=== PATIENT | female | born 2005 | race Caucasian/White ===

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

== ENCOUNTER 2024-03-19 14:34 | Emergency (ER) | payer OTHER, MEDICAID, SELFPAY ==
[2024-03-19 14:40] VITALS: BP 133/70; PULSE 104; RESP 21; TEMP 36.8; O2SAT 96; BMI 31.3
--- NOTE | 2024-03-19 14:58 | EXP.UTC ---
Discharge Plan Disposition Patient Disposition: Home, Self-Care Condition: Good Prescriptions Prescriptions: New nystatin 100,000 unit/mL suspension 4 ml buccal QID 10 Days Qty: 160 0RF Rx Instructions: administer 1/2 of dose in each side of the mouth swish and spit No Action escitalopram oxalate 10 mg tablet 10 mg PO DAILY Referrals Follow up/Referrals: Kaity Carlson PA [Primary Care Provider] - See instructions Activity Restrictions/Add. Instructions Additional Instructions/Restrictions: Swish and spit medication as prescribed Clean all straws or anything that you have placed in your mouth FOllow up with your Family Doctor if no improvement or any worsening of symptoms Clinical Impressions Clinical Impression: Thrush Instructions Patient Instructions: DI for Thrush, Thrush-Adult, Nystatin Discharge ED Provider: Rocío Fuentes [facility] General Stated complaint: Thrush Mode of Arrival: Ambulatory Source of Information: Patient Limitations: No Limitations Time Seen by Provider: 03/19/24 14:59 Description of Symptoms (Recalled from Triage Doc. by RN): PATIENT C/O ORAL THURSH SINCE YESTERDAY HEENT Symptoms (Recalled from RN notes): Yes Resp Symptoms (Recalled from RN notes): No Skin Symptoms (Recalled from RN notes): No MS Symptoms (Recalled from RN notes): No Functional Status (Recalled from RN notes): WNL History of Present Illness Provider Complaint: Patient states that she noticed her tongue had white patchy like areas on it yesterday and felt raw states today it looked more patchy and thinks she may have thrush Related Data Home Medications Medication Instructions Recorded Confirmed escitalopram oxalate 10 mg tablet 10 mg PO DAILY 03/19/24 03/19/24 Previous Rx's Medication Instructions Recorded nystatin 100,000 unit/mL oral 4 ml buccal QID 10 days #160 mL 03/19/24 suspension Allergies Allergy/AdvReac Type Severity Reaction Status Date / Time No Known Allergies Allergy Verified 03/01/24 13:46 Worker's Comp Is this a Worker's Comp case?: No [facility] Disclaimer: The information contained in this section may have been updated after the patient was seen, as this information can be updated by other users. Medical History (Updated 03/19/24 @ 15:03 by Rocío Fuentes APRN) Depression Anxiety Surgical History H/O wisdom tooth extraction Family History Other Substance abuse Social History Smoking Status: Never smoker second hand exposure: No alcohol intake: never substance use type: denies use current occupational status: other Travel in the last 8 weeks: None housing: house number of children: 0 ROS Obtained: Yes All systems reviewed & no additional complaints except as documented and Yes Systems reviewed as appropriate & no additional complaints except as documented Constitutional Constitutional: Reports system reviewed and no additional complaints, except as documented and Reports as per HPI ENT Ears, Nose, Mouth, and Throat: Reports system reviewed and no additional complaints, except as documented, Reports as per HPI and Reports other (white patchy area on tongue thinks it is thrush) Cardiovascular Cardiovascular: Reports system reviewed and no additional complaints, except as documented and Reports as per HPI Respiratory Respiratory: Reports system reviewed and no additional complaints, except as documented and Reports as per HPI Physical Exam General General appearance: alert and in no apparent distress ENT ENT exam: Present mucous membranes moist Expanded ENT Exam Mouth exam: Present other (white patchy like areas on tongue that does not scrap off with tongue blade) Respiratory Respiratory exam: Present normal lung sounds bilaterally; Absent respiratory distress or wheezes Cardiovascular Cardiovascular exam: Present regular rate, normal rhythm and normal heart sounds Neurological Exam Neurological exam: Present alert, oriented X3 and normal gait Medical Decision Making Regis Inquiry Pt receiving controlled substance: No Regis was queried for this patient: No Vital Signs: 03/19/24 14:40 Temperature 98.2 F Temperature Source Oral Pulse Rate [Left Brachial] 104 H Respiratory Rate 21 Blood Pressure [Left Arm] 133/70 Blood Pressure Mean [Left Arm] 91 Blood Pressure Source [Left Arm] Automatic Cuff Blood Pressure Position [Left Arm] Sitting 02 Sat by Pulse Oximetry 96 Oxygen Delivery Method Room Air
[2024-03-19 15:06] VITALS: BP 133/70; PULSE 104; RESP 21; TEMP 36.8; O2SAT 96
== END 2024-03-19 15:10 | disposition home or self-care (01) ==
PROVIDERS: Emergency Provider Nurse Practitioner; PCP Physician Assistant
DX: B37.0 Candidal stomatitis (principal)
CPT/HCPCS: 99212; 99214; G0463

== ENCOUNTER 2024-04-04 19:21 | Emergency (ER) | payer OTHER, MEDICAID, SELFPAY ==
[2024-04-04 19:34] VITALS: BP 136/72; PULSE 107; RESP 18; TEMP 37; O2SAT 95; BMI 31.8
[2024-04-04 19:40] LABS: UTC Strep Screen (Rapid) Negative (Negative)
--- NOTE | 2024-04-04 19:40 | ED_ITS ---
Discharge Plan Disposition Patient Disposition: Home, Self-Care Condition: Good Prescriptions Prescriptions: New amoxicillin 875 mg tablet 875 mg PO Q12H Qty: 20 0RF methylprednisolone 4 mg Tablets,Dose Pack 4 mg PO DIRECTED 6 Days Qty: 21 0RF Rx Instructions: Take 1 pack as directed for 6 days No Action escitalopram oxalate 10 mg tablet 10 mg PO DAILY nystatin 100,000 unit/mL suspension 4 ml buccal QID 10 Days Qty: 160 0RF Rx Instructions: administer 1/2 of dose in each side of the mouth swish and spit Referrals Follow up/Referrals: Kaity Carlson PA [Primary Care Provider] - See instructions Activity Restrictions/Add. Instructions Additional Instructions/Restrictions: Drink plenty of fluids. Take tylenol or ibuprofen for pain or fever. Take the medications as directed. Follow up with your regular doctor. GO TO THE ER FOR ANY WORSENING SYMPTOMS Clinical Impressions Clinical Impression: Sinusitis, Otitis media Instructions Patient Instructions: Sinusitis, DI for Sinusitis Discharge ED Provider: Gustavo Mathew [facility] General Stated complaint: Sore throat,cough,earache,teeth hurt Mode of Arrival: Ambulatory Source of Information: Patient Limitations: No Limitations Time Seen by Provider: 04/04/24 19:35 Description of Symptoms (Recalled from Triage Doc. by RN): Patient reports a possible sinus infection. States her symptoms started on April 03. HEENT Symptoms (Recalled from RN notes): Yes Resp Symptoms (Recalled from RN notes): No Skin Symptoms (Recalled from RN notes): No MS Symptoms (Recalled from RN notes): No Functional Status (Recalled from RN notes): wnl Related Data Home Medications Medication Instructions Recorded Confirmed escitalopram oxalate 10 mg tablet 10 mg PO DAILY 03/19/24 03/23/24 Previous Rx's Medication Instructions Recorded nystatin 100,000 unit/mL oral 4 ml buccal QID 10 days #160 mL 03/19/24 suspension amoxicillin 875 mg tablet 875 mg PO Q12H #20 tabs 04/04/24 methylprednisolone 4 mg tablets in 4 mg PO DIRECTED 6 days #21 tabs 04/04/24 a dose pack Allergies Allergy/AdvReac Type Severity Reaction Status Date / Time No Known Allergies Allergy Verified 03/23/24 08:50 Worker's Comp Is this a Worker's Comp case?: No [facility] Disclaimer: The information contained in this section may have been updated after the patient was seen, as this information can be updated by other users. Medical History (Updated 04/04/24 @ 20:03 by Gustaov Mathew APRN) Depression Anxiety Surgical History H/O wisdom tooth extraction Family History Other Substance abuse Social History Smoking Status: Never smoker second hand exposure: No alcohol intake: never substance use type: denies use current occupational status: other Travel in the last 8 weeks: None housing: house number of children: 0 ROS Obtained: Yes All systems reviewed & no additional complaints except as documented Constitutional Constitutional: Reports chills and Reports fever(s) Eyes Eyes: Denies eye discharge ENT Ears, Nose, Mouth, and Throat: Reports as per HPI Cardiovascular Cardiovascular: Denies chest pain Respiratory Respiratory: Denies chest congestion and Reports cough Gastrointestinal Gastrointestingal: Reports nausea; Denies abdominal pain, constipation, cramping, diarrhea or vomiting Musculoskeletal Musculoskeletal: Denies arthralgias Integumentary/Breasts Skin/Breast: Denies rash Neurologic Neurologic: Denies paresthesias Physical Exam General General appearance: alert and in no apparent distress Head Head exam: atraumatic, normocephalic and normal inspection Eye Eye exam: Present normal appearance, PERRL and EOMI ENT ENT exam: Present mucous membranes moist and normal external ear exam Expanded ENT Exam TM/Canal exam: Bilateral TM: erythema and bulging Nose exam: Absent sinus tenderness Mouth exam: Present normal external inspection; Absent drooling Teeth exam: Present normal inspection Throat exam: Present tonsillar erythema, tonsillomegaly and tonsillar exudate Neck Neck exam: Present normal inspection, full ROM and trachea midline; Absent tenderness, meningismus or lymphadenopathy Chest Chest inspection: Present normal inspection and symmetric chest wall rise; Abs ent tenderness Respiratory Respiratory exam: Present normal lung sounds bilaterally; Absent respiratory distress, wheezes or stridor Cardiovascular Cardiovascular exam: Present regular rate and normal rhythm; Absent systolic murmur or diastolic murmur Abdominal Exam Abdominal exam: Present soft and normal bowel sounds; Absent distention, tenderness, guarding, rebound or rigidity Extremities Exam Extremities exam: Present normal inspection and normal capillary refill; Absent calf tenderness Back Exam Back exam: Present normal inspection and full ROM; Absent tenderness, CVA tenderness (R) or CVA tenderness (L) Neurological Exam Neurological exam: Present alert, oriented X3 and CN II-XII intact Psychiatric Psychiatric exam: Present normal affect and normal mood Skin Skin exam: Present warm, dry, intact and normal color Medical Decision Making Medical Records Medical records reviewed: No I reviewed the patient's medical records. Regis Inquiry Pt receiving controlled substance: No Vital Signs: 04/04/24 19:34 Temperature 98.6 F Temperature Source Oral Pulse Rate [Radial] 107 H Respiratory Rate 18 Blood Pressure [Right Arm] 136/72 Blood Pressure Mean [Right Arm] 93 Blood Pressure Source [Right Arm] Automatic Cuff Blood Pressure Position [Right Arm] Sitting 02 Sat by Pulse Oximetry 95 Oxygen Delivery Method Room Air Lab Data Lab results reviewed: Yes I reviewed the patient's lab results.
[2024-04-04 20:03] VITALS: BP 136/72; PULSE 107; RESP 18; TEMP 37; O2SAT 95
== END 2024-04-04 20:06 | disposition home or self-care (01) ==
PROVIDERS: Emergency Provider Nurse Practitioner Family; PCP Physician Assistant
DX: H66.93 Otitis media, unspecified, bilateral (principal); J01.90 Acute sinusitis, unspecified; R05.9 Cough, unspecified; R07.0 Pain in throat
CPT/HCPCS: 87880; 99212; 99214; G0463

== ENCOUNTER 2024-05-09 12:26 | Outpatient (CLI) | payer OTHER, MEDICAID, SELFPAY ==
[2024-05-09 13:30] LABS: HCG,Quantitative < 2 mIU/ml (0-5.42)
== END 2024-05-09 23:59 | disposition home or self-care (01) ==
LOC: LAB 12:26
PROVIDERS: PCP Physician Assistant; Visit Provider Obstetrics & Gynecology
DX: Z30.9 Encounter for contraceptive management, unspecified (principal)
CPT/HCPCS: 36415; 84702

== ENCOUNTER 2024-05-29 18:13 | Emergency (ER) | payer OTHER, MEDICAID, SELFPAY ==
[2024-05-29 19:00] VITALS: BP 116/58; PULSE 134; RESP 22; TEMP 38.5; O2SAT 97; BMI 32.8
[2024-05-29 19:12] LABS: UTC Strep Screen (Rapid) Positive (Negative)
[2024-05-29] MEDS: IBUPROFEN 400 MG TABLET 800 MG PO (19:19)
--- NOTE | 2024-05-29 19:27 | ED_ITS ---
Discharge Plan Disposition Patient Disposition: Home, Self-Care Condition: Good Prescriptions Prescriptions: New amoxicillin 875 mg tablet 875 mg PO BID 10 Days Qty: 20 0RF No Action escitalopram oxalate 10 mg tablet 20 mg PO DAILY Referrals Follow up/Referrals: Kaity Carlson PA [Primary Care Provider] - See instructions Activity Restrictions/Add. Instructions Additional Instructions/Restrictions: *Monitor Temp, Over the counter Motrin or Tylenol as directed/as needed Tylenol every 4 hours and Motrin every 6 hours (as long as your family doctor has told you that you can take it) for fever or pain. and straight to ER if unable to lower temp less than 101.0 after medication given *Warm salt water gargles may help to soothe the throat *Throat Lozenges? *Warm fluids like tea with honey may help to soothe the throat? *Sleep elevated *Humidifier/Vaporizer * *If you did not take Penicillin shot or was unable to, start taking antibiotic immediately and make sure that you take it for the FULL length of time although you should start to feel better in 24-48 hours *change toothbrush and toothpaste 24-48 hours after starting to take antibiotics so you do not reinfect yourself Monitor Temp. Tylenol and/or Ibuprofen as needed. ER if fever is no less than 101 despite alternating Tylenol and Ibuprofen * Encourage fluids, water, Gatorade, powerade, pedialyte if /toddler/or child *Cold fluids, popsicles and ice cream may feel good on his throat Follow up IMMEDIATELY for new or worsening symptoms or no Noticeable improvement over the next 48-72 hours. 911 for difficulty breathing or swallowing You were tested for today for COVID19 your test result should be back in the next few ?hours, you may check your results on the [facility] [address] [facility] [employer] [facility] Clinical Impressions Clinical Impression: Strep throat Instructions Patient Instructions: Strep Throat, DI for Strep Throat, Amoxicillin Print Language Print Language: Estonian Discharge ED Provider: Rocío Fuentes [facility] [place] General Stated complaint: Sore throat,Body aches,YOON Mode of Arrival: Ambulatory Source of Information: Patient Limitations: No Limitations Time Seen by Provider: 05/29/24 19:27 Description of Symptoms (Recalled from Triage Doc. by RN): PATIENT C/O SORE THROAT, HEADACHE, FEVER AND BODY ACHES THAT STARTED THIS MORNING HEENT Symptoms (Recalled from RN notes): Yes Resp Symptoms (Recalled from RN notes): No Skin Symptoms (Recalled from RN notes): No MS Symptoms (Recalled from RN notes): No Functional Status (Recalled from RN notes): WNL History of Present Illness Provider Complaint: Patient states that she woke up this morning with her throat hurting, feeling achy all over, headache, fever and chills states that she continued to feel bad throughout they day and this evening she was still not feeling well and having fever so she came in to get checked for strep and COVID Related Data Home Medications ?Medication ?Instructions ?Recorded ?Confirmed escitalopram oxalate 10 mg tablet 20 mg PO DAILY 03/19/24 05/29/24 Previous Rx's ?Medication ?Instructions ?Recorded amoxicillin 875 mg tablet 875 mg PO BID 10 days #20 tabs 05/29/24 Allergies Allergy/AdvReac Type Severity Reaction Status Date / Time No Known Allergies Allergy Verified 04/10/24 15:37 Worker's Comp Is this a Worker's Comp case?: No [facility] Disclaimer: The information contained in this section may have been updated after the patient was seen, as this information can be updated by other users. Medical History Depression Anxiety Surgical History H/O wisdom tooth extraction Family History Other Substance abuse Social History Smoking Status: Never smoker second hand exposure: No alcohol intake: never substance use type: denies use current occupational status: other Travel in the last 8 weeks: None housing: house number of children: 0 ROS Obtained: Yes All systems reviewed & no additional complaints except as documented and Yes Systems reviewed as appropriate & no additional complaints except as documented Constitutional Constitutional: Reports system reviewed and no additional complaints, except as documented, Reports as per HPI, Reports body ache, Reports chills, Reports fever(s) and Reports headache(s) ENT Ears, Nose, Mouth, and Throat: Reports system reviewed and no additional complaints, except as documented, Reports as per HPI, Reports headache(s) and Reports sore throat Cardiovascular Cardiovascular: Reports system reviewed and no additional complaints, except as documented and Reports as per HPI Respiratory Respiratory: Reports system reviewed and no additional complaints, except as documented and Reports as per HPI Gastrointestinal Gastrointestingal: Reports system reviewed and no additional complaints, except as documented and as per HPI Neurologic Neurologic: Reports headache(s) Physical Exam General General appearance: alert and in no apparent distress ENT ENT exam: Present mucous membranes moist Expanded ENT Exam Nose exam: Absent sinus tenderness Throat exam: Present tonsillar erythema Respiratory Respiratory exam: Present normal lung sounds bilaterally; Absent respiratory distress or wheezes Cardiovascular Cardiovascular exam: Present regular rate, normal rhythm and normal heart sounds Abdominal Exam Abdominal exam: Present soft and normal bowel sounds; Absent distention or tenderness Neurological Exam Neurological exam: Present alert, oriented X3 and normal gait Medical Decision Making Regis Inquiry Pt receiving controlled substance: No Regis was queried for this patient: No Vital Signs: 05/29/24 19:00 Temperature 101.3 F H Temperature Source Oral Pulse Rate [Left Brachial] 134 H Respiratory Rate 22 Blood Pressure [Left Arm] 116/58 L Blood Pressure Mean [Left Arm] 77 Blood Pressure Source [Left Arm] Automatic Cuff Blood Pressure Position [Left Arm] Sitting 02 Sat by Pulse Oximetry 97 Oxygen Delivery Method Room Air Lab Data Lab results reviewed: Yes I reviewed the patient's lab results. Lab Results 05/29/24 19:02: Strep Scn Rapid Clinic Positive A Orders (Tests/Meds): ED MEDICATIONS Generic Name Dose Route Start Last Admin Trade Name Tray PRN Reason Stop Dose Admin Ibuprofen 800 mg 05/29/24 19:13 05/29/24 19:19 Ibuprofen 400 Mg Tablet PO 05/29/24 19:14 800 mg ONCE ONE Administration
[2024-05-29 19:53] VITALS: BP 116/58; PULSE 134; RESP 22; TEMP 38.4; O2SAT 97
[2024-05-29] MEDS: AMOXICILLIN 500MG CAPSULE 500 MG PO (19:57)
[2024-05-29 20:04] LABS: Coronavirus 19, PCR Not Detected (NotDetected); Influenza A, PCR Not Detected (NotDetected); Influenza B, PCR Not Detected (NotDetected)
== END 2024-05-29 20:03 | disposition home or self-care (01) ==
PROVIDERS: Emergency Provider Nurse Practitioner; PCP Physician Assistant
DX: J02.0 Streptococcal pharyngitis (principal); R51.9 Headache, unspecified; R50.9 Fever, unspecified
CPT/HCPCS: 87636; 87880; 99212; 99214; G0463

== ENCOUNTER 2024-07-23 12:19 | Emergency (ER) | payer OTHER, SELFPAY ==
[2024-07-23] VITALS (9 sets, daily range): BP systolic 102–136; BP diastolic 51–78; PULSE 71–112; RESP 16–19; TEMP 37.1–37.3; O2SAT 98–100; BMI 32.3
--- NOTE | 2024-07-23 12:40 | US_ITS ---
PROCEDURE INFORMATION: Exam: US Duplex Artery and Vein of the Abdominal and/or Reproductive Organs. Complete Ovaries Exam date and time: 07/23/2024 12:46 PM Age: 19 years old Clinical indication: Pelvic pain; Additional info: Rule out R ovarian torsion, acute severe rlq pain TECHNIQUE: Imaging protocol: Real-time duplex ultrasound scan of the arterial and venous flow with color Doppler flow and spectral waveform analysis with image documentation. Duplex exam was performed to evaluate for torsion and other vascular conditions. COMPARISON: US TRANSVAGINAL 11/15/2023 4:03 PM FINDINGS: Right ovary/adnexa: Color and spectral Doppler demonstrates normal ovarian arterial and venous blood flow in the right ovary. Left ovary/adnexa: Color and spectral Doppler demonstrates normal ovarian arterial and venous blood flow in the left ovary. IMPRESSION: No evidence of ovarian torsion. PROCEDURE INFORMATION: Exam: US Pelvis, Transvaginal, Non-Obstetric Exam date and time: 07/23/2024 12:46 PM Age: 19 years old Clinical indication: Pelvic pain; Additional info: Rule out R ovarian torsion, acute severe rlq pain TECHNIQUE: Imaging protocol: Real-time transvaginal pelvic (non-obstetric) ultrasound with image documentation. Transvaginal imaging was used for better evaluation of the endometrium, adnexa, and/or cervix. COMPARISON: US TRANSVAGINAL 11/15/2023 4:03 PM FINDINGS: Uterus: Uterus is retroflexed and retroverted, normal variant anatomy. Uterine size and endometrial stripe are within normal limits for age. Intrauterine device in place and appears appropriately positioned within the endometrial canal. Right ovary/adnexa: Right ovary is normal in size for age and contains small physiologic follicles. Left ovary/adnexa: Left ovary is normal in size for age and contains small physiologic follicles. Urinary bladder: Unremarkable as visualized. Intraperitoneal space: Trace amount of simple, anechoic free fluid in the pelvic cul-de-sac, within normal limits for physiologic fluid. IMPRESSION: Normal pelvic ultrasound.
[2024-07-23 12:45] LABS: Microscopic, Urine URINE MICROSCOPIC (MICROSCOPIC)
[2024-07-23 12:46] LABS: Appearance,Urine SL CLOUDY (Clear); Bilirubin,Urine Negative (Negative); Blood, Urine 2+ (Negative); Color,Urine YELLOW (Yellow); Glucose,Urine (UA) Negative (Negative); Ketones,Urine Negative (Negative); Leukocyte Esterase,Urine 2+ (Negative); Nitrate,Urine Negative (Negative); Protein,Urine TRACE (Negative); Urobilinogen,Urine 0.2 EU/dl (0.2)
[2024-07-23 12:49] LABS: Basophils % 0.4 % (0.1-2.0); Eosinophils # 0.2 K/mm3 (0.0-0.4); Eosinophils % 2.9 % (0.1-12.0); Hematocrit 36.6 % (37.0-47.0); Hemoglobin 12.2 g/dL (12.2-16.2); Lymphocytes # 1.3 K/mm3 (0.7-4.5); Lymphocytes % 21.8 % (10-50); Mean Corpuscular HGB Conc 33.4 g/dL (31.8-35.4); Mean Corpuscular Hemoglobin 31.6 pg (27.0-31.2); Mean Corpuscular Volume 94.6 fl (81-99); Mean Platelet Volume 8.6 fl (7.4-10.4); Monocytes # 0.3 K/mm3 (0.1-1.0); Monocytes % 4.8 % (1.7-9.3); Neutrophils # 4.2 K/mm3 (1.8-7.8); Neutrophils % 70.2 % (37.0-80.0); Platelet Count 223 K/mm3 (142-424); Red Blood Count 3.87 M/mm3 (4.20-5.40); Red Cell Distribution Width 13.6 % (11.5-17.5); White Blood Count 6.1 K/mm3 (4.5-13.0)
--- NOTE | 2024-07-23 12:49 | PC.NURSE ---
Pt out of room with Rad for US
[2024-07-23 12:55] LABS: Bacteria,Urine 2+ /lpf
[2024-07-23 12:59] LABS: Alanine Aminotransferase 29 U/L (12-78); Albumin Level 3.9 g/dl (3.5-5.0); Albumin/Globulin Ratio 1.4 (1.1-1.8); Alkaline Phosphatase 64 U/L (38-126); Anion Gap 9.5 mEq/L (5-15); Aspartate Amino Transferase 26 U/L (14-36); Bilirubin,Total 0.4 mg/dl (0.2-1.3); Blood Urea Nitrogen 7 mg/dl (7-17); Calcium 8.7 mg/dl (8.4-10.2); Carbon Dioxide 24 mmol/L (22.0-30.0); Chloride 109 mmol/L (98-107); Estimated Glomerular Filt Rate 127 ml/min (>60); GFR (African American) 154 ML/MIN (>60); Globulin 2.7 g/dL (1.3-3.2); Glucose 76 mg/dl (74-100); Lactic Acid 1.8 mmol/L (0.7-2.1); Lipase 53 U/L (23-300); Potassium 3.5 mmoL/L (3.5-5.1); Sodium 139 mmol/L (136-145); Total Protein,Serum 6.6 g/dl (6.3-8.2)
--- NOTE | 2024-07-23 13:11 | HMH.EDGENADL ---
Discharge Plan Disposition Patient Disposition: Home, Self-Care Condition: Good Prescriptions Prescriptions: New cefdinir 300 mg capsule 300 mg PO BID 10 Days Qty: 20 0RF phenazopyridine 200 mg tablet 200 mg PO Q8H PRN (Reason: pain) Qty: 6 0RF No Action escitalopram oxalate 20 mg tablet 20 mg PO DAILY Qty: 30 0RF Referrals Follow up/Referrals: Kaity Carlson PA [Primary Care Provider] - See instructions Activity Restrictions/Add. Instructions Additional Instructions/Restrictions: You were evaluated in the emergency department today. Please chicken picker your prescriptions at the pharmacy and take them as prescribed. Follow-up closely with your primary care provider. Return to the emergency department for new or worsening symptoms Clinical Impressions Clinical Impression: Pelvic pain, UTI (urinary tract infection) Stand Alone Forms Stand Alone Forms: Work/School Release Instructions Patient Instructions: DI for Urinary Tract Infection (UTI), DI for Acute Abdominal Pain Print Language Print Language: Bulgarian Discharge ED Provider: Kamila Ac General Adult HPI <Hudson Bueno MD - Last Filed: 07/23/24 14:56> General Chief complaint: Abdominal Pain Stated complaint: abd pain Time Seen by Provider: 07/23/24 12:32 Mode of Arrival: Family Vehicle Source of Information: Patient Limitations: No Limitations Description of Symptoms (Recalled from ER Triage Doc. by RN): Pt c/o R side ABD pain and dysuria. She reports nausea wo v/d. She also c/o chills and body aches, no documented fever. No hx of abd surgeries. She does states her IUD migrated to her overy approx 6 mn ago and had to be replaced. History of Present Illness HPI narrative: Please note that above description of symptoms, in this electronic medical record under categorization of recalled from ER triage doctor by RN are reflective of an initial nursing assessment, however, is not reflective of my full history and physical exam that was personally taken and clarified. Consequentially, this preceding description of symptoms, which may include the patient's categorized chief complaint in the EMR, do not reflect my personal clinical impression, and the ultimate description of history of present illness and patient stated complaints should be deferred to this section of the note. Unless stated otherwise or congruent with this section of the note, additional signs, symptoms, or incongruence should be interpreted as inaccurate with my clinical impression. Related Data Previous Rx's ?Medication ?Instructions ?Recorded escitalopram oxalate 20 mg tablet 20 mg PO DAILY #30 tabs 07/20/24 cefdinir 300 mg capsule 300 mg PO BID 10 days #20 caps 07/23/24 phenazopyridine 200 mg tablet 200 mg PO Q8H PRN pain 6 doses #6 07/23/24 tabs Allergies Allergy/AdvReac Type Severity Reaction Status Date / Time No Known Allergies Allergy Verified 06/14/24 13:01 [facility] <Hudson Bueno MD - Last Filed: 07/23/24 14:56> [facility] Disclaimer: The information contained in this section may have been updated after the patient was seen, as this information can be updated by other users. Medical History (Updated 07/23/24 @ 16:23 by Kamila Ac DO) Recurrent streptococcal pharyngitis Depression Anxiety Surgical History H/O wisdom tooth extraction Family History Other Substance abuse Social History (Updated 06/14/24 @ 13:08 by DIEGO Hernandez) Smoking Status: Never smoker second hand exposure: No alcohol intake: never substance use type: denies use current occupational status: other Travel in the last 8 weeks: None housing: house number of children: 0 <Hudson Bueno MD - Last Filed: 07/23/24 14:56> ROS Obtained: Yes All systems reviewed & no additional complaints except as documented Physical Exam <Hudson Bueno MD - Last Filed: 07/23/24 14:56> General General appearance: alert Head Head exam: atraumatic and normocephalic Eye Eye exam: Present normal appearance, PERRL and EOMI Neck Neck exam: Present normal inspection, full ROM and trachea midline Respiratory Respiratory exam: Absent respiratory distress, wheezes, stridor, accessory muscle use or prolonged expiratory phase Cardiovascular Cardiovascular exam: Present other (Pulses equal symmetric in upper and lower extremities) Abdominal Exam Abdominal exam: Present soft, tenderness and guarding (Voluntary guarding suprapubic ); Absent distention, rebound, rigidity or pulsatile mass Abdominal tenderness: Present suprapubic and moderate Extremities Exam Extremities exam: Absent edema Neurological Exam Neurological exam: Present alert, oriented X3 and CN II-XII intact; Absent motor sensory deficit Skin Skin exam: Present warm and dry; Absent diaphoresis or erythema Medical Decision Making <Hudson Bueno MD - Last Filed: 07/23/24 14:56> Medical Records Medical records reviewed: Yes I reviewed the patient's medical records. Screening: Per USPSTF and CDC recommendations, given the prevalence of disease in our region, it is our hospital?s policy to screen for HIV and viral Hepatitis for all patients aged 18 and over and those with ongoing risk factors. Regis Inquiry Pt receiving controlled substance: No Regis was queried for this patient: No Vital Signs: 07/23/24 12:20 07/23/24 12:31 07/23/24 13:30 Temperature 99.1 F Temperature Source Oral Pulse Rate 99 H 71 Pulse Rate [Right] 97 H Respiratory Rate 19 Blood Pressure 120/59 L 117/57 L Blood Pressure [Right Arm] 120/59 L Blood Pressure Mean 79 76 Blood Pressure Mean [Right Arm] 79 Blood Pressure Source Blood Pressure Source [Right Arm] Automatic Cuff 02 Sat by Pulse Oximetry 99 99 98 Oxygen Delivery Method Room Air Room Air Room Air 07/23/24 14:00 07/23/24 14:13 07/23/24 15:01 Temperature Temperature Source Pulse Rate 75 112 H Pulse Rate [Right] Respiratory Rate Blood Pressure 120/51 L 120/59 L 109/66 L Blood Pressure [Right Arm] Blood Pressure Mean 77 67 Blood Pressure Mean [Right Arm] Blood Pressure Source Blood Pressure Source [Right Arm] 02 Sat by Pulse Oximetry 100 98 98 Oxygen Delivery Method Room Air Room Air Room Air 07/23/24 15:30 07/23/24 16:01 07/23/24 16:52 Temperature 98.8 F Temperature Source Oral Pulse Rate 76 79 75 Pulse Rate [Right] Respiratory Rate 16 Blood Pressure 102/64 L 136/78 118/75 Blood Pressure [Right Arm] Blood Pressure Mean 86 Blood Pressure Mean [Right Arm] Blood Pressure Source Automatic Cuff Blood Pressure Source [Right Arm] 02 Sat by Pulse Oximetry 98 99 Oxygen Delivery Method Room Air Room Air Room Air Lab Data Lab Results 07/23/24 12:38: WBC 6.1, RBC 3.87 L, Hgb 12.2, Hct 36.6 L, MCV 94.6, MCH 31.6 H, MCHC 33.4, RDW 13.6, Plt Count 223, MPV 8.6, Neut % (Auto) 70.2, Lymph % (Auto) 21.8, [place] % (Auto) 4.8, Eos % (Auto) 2.9, Baso % (Auto) 0.4, Neut # (Auto) 4.2, Lymph # (Auto) 1.3, [place] # (Auto) 0.3, Eos # (Auto) 0.2, Baso # (Auto) 0.0, Sodium 139, Potassium 3.5, Chloride 109 H, Carbon Dioxide 24, Anion Gap 9.5, BUN 7, Creatinine 0.60, Estimated GFR 127, Est GFR ( Amer) 154, Glucose 76, Lactate 1.8, Calcium 8.7, Total Bilirubin 0.4, AST 26, ALT 29, Alkaline Phosphatase 64, C-Reactive Protein 3.2, Total Protein 6.6, Albumin 3.9, Globulin 2.7, Albumin/Globulin Ratio 1.4, Lipase 53, Serum HCG, Qual Negative, Urine Color Yellow, Urine Appearance Sl cloudy, Urine pH 6.0, Ur Specific [place] 1.020, Urine Protein Trace, Urine Glucose (UA) Negative, Urine Ketones Negative, Urine Blood 2+ A, Urine Nitrate Negative, Urine Bilirubin Negative, Urine Urobilinogen 0.2, Ur Leukocyte Esterase 2+ A, Urine RBC 10-20, Urine WBC 10-20, Ur Squamous Epith Cells 5-10, Urine Bacteria 2+, HIV 1&2 Antibody Rapid Nonreactive 07/23/24 12:38 07/23/24 12:38 Orders (Tests/Meds): ED MEDICATIONS Discontinued Medications Generic Name Dose Route Start Last Admin Trade Name Tray PRN Reason Stop Dose Admin Cefdinir 300 mg 07/23/24 16:21 07/23/24 16:46 Cefdinir 300mg Capsule PO 07/23/24 16:22 300 mg ONCE ONE Administration Hydromorphone HCl 0.5 mg 07/23/24 14:41 07/23/24 14:57 Hydromorphone 2mg/Ml Syringe IV 07/23/24 14:42 0.5 mg ONCE ONE Administration Lactated Ringer's 1,000 mls @ 999 mls/hr 07/23/24 12:39 07/23/24 13:16 Lactated Ringer's 1000 Ml Bag IV 07/23/24 13:39 999 mls/hr .Q1H1M ONE Administration Iopamidol 75 ml 07/23/24 14:37 07/23/24 14:38 Iopamidol-370 (76%);100ml Bottle IV 07/23/24 14:38 75 ml ONCE ONE Administration Ketorolac Tromethamine 15 mg 07/23/24 12:39 07/23/24 13:16 Ketorolac 30mg/Ml Vial IV 07/23/24 12:40 15 mg ONCE ONE Administration Ondansetron HCl 4 mg 07/23/24 12:39 07/23/24 13:20 Ondansetron 4mg/2ml Vial IV 07/23/24 12:40 Not Given ONCE ONE Phenazopyridine HCl 200 mg 07/23/24 16:21 07/23/24 16:46 Phenazopyridine 200mg Tablet PO 07/23/24 16:22 200 mg ONCE ONE Administration Sodium Chloride 10 ml 07/23/24 14:37 07/23/24 14:38 Sodium Chloride 0.9% 10ml Syr (Rad Only) IV 08/22/24 14:36 10 ml NEEDED PRN Administration Maintain IV Site ORDERS Category Date Time Status CT abdomen pelvis w con Stat Cat Scan 07/23/24 13:17 Completed US transvaginal Stat Exams 07/23/24 12:40 Completed CBC w/Auto Diff [Complete Blood Count Auto Diff] Stat Lab 07/23/24 12:38 Completed CMP [Comprehensive Metabolic Panel] Stat Lab 07/23/24 12:38 Completed CRP [C-Reactive Protein] Stat Lab 07/23/24 12:38 Completed HIV (1&2) Antibody Rapid Stat Lab 07/23/24 12:38 Completed Hep C Ab with Reflex to RNA Stat Lab 07/23/24 12:38 Received Lactic Acid Stat Lab 07/23/24 12:38 Completed Lipase Stat Lab 07/23/24 12:38 Completed Serum [HCG Qualitative, Serum] Stat Lab 07/23/24 12:38 Completed Trichomonas Vaginalis, LAUREN Stat Lab 07/23/24 12:22 Received UA [Urinalysis and Microscopic] Stat Lab 07/23/24 12:38 Completed Urine Culture Stat Micro 07/23/24 12:38 Received Medical Decision Narrative: 19-year-old female history of ovarian cyst, recent IUD placement presenting with abdominal pain. Patient states that abdominal pain started today, 07/23 at 6 AM. She was making morning feed for her child. Not doing anything exertional. Was moderate to severe in intensity at onset, did not radiate, associated with nausea without vomiting. Patient states that it still does not radiate, severe in intensity, made worse with walking. Right lower quadrant/suprapubic. Has never had anything like this in the past. No urinary symptoms, no vaginal discharge or bleeding. No chance of or history of STD. History was obtained via conversation with patient. On arrival, patient hemodynamically stable, alert, oriented x4, appropriate, GCS 15, moving all extremities spontaneously, pupils equal and reactive to light. Full physical exam performed and significant for uncomfortable appearing female who is laying still in bed. Abdomen is soft, nondistended, tender with voluntary guarding suprapubic region and right lower quadrant. No right upper quadrant tenderness. No rebound or rigidity. No flank tenderness. No overlying skin changes. No evidence of inguinal hernia. Differential includes PUD, gastritis, enteritis, gastroenteritis, pancreatitis, SBO, colitis, diverticulitis, nephrolithiasis, UTI, , cholecystitis, choledocholithiasis, appendicitis, hepatitis, torsion, less likely aortic pathology, mesenteric ischemia among others. Patient placed on continuous cardiac monitoring and continuous pulse ox with initial blood pressure 120/59, heart rate 87, saturation 99% on room air. Patient was given fluids, Toradol, Zofran for symptomatic management and correction of underlying abnormalities. Workup independently interpreted and significant for nonactionable CBC. Patient's chemistry nonactionable as well. Lipase negative. hCG negative. Gonorrhea, chlamydia, trichomonas pending. Pelvic ultrasound ordered. On independent interpretation of pelvic ultrasound, flow to both ovaries, no evidence of large cyst. Because patient still having persistent symptoms on reevaluation, CT abdomen pelvis was ordered. Patient still in pain, given 0.5 mg Dilaudid. On independent interpretation of CT imaging, no acute intra-abdominal abnormality. IUD appears to be in place. Prior to final evaluation, disposition, radiology read, care handed off to oncoming physician. Heel Former disclaimer Much of this encounter note is an electronic oncology transplant network manager spoken language to printed text. Electronic oncology transplant network manager of the spoken language may permit errors. Although I have reviewed the note, some errors may still exist. <Kamila Ac, DO - Last Filed: 07/23/24 22:10> Vital Signs: 07/23/24 12:20 07/23/24 12:31 07/23/24 13:30 Temperature 99.1 F Temperature Source Oral Pulse Rate 99 H 71 Pulse Rate [Right] 97 H Respiratory Rate 19 Blood Pressure 120/59 L 117/57 L Blood Pressure [Right Arm] 120/59 L Blood Pressure Mean 79 76 Blood Pressure Mean [Right Arm] 79 Blood Pressure Source Blood Pressure Source [Right Arm] Automatic Cuff 02 Sat by Pulse Oximetry 99 99 98 Oxygen Delivery Method Room Air Room Air Room Air 07/23/24 14:00 07/23/24 14:13 07/23/24 15:01 Temperature Temperature Source Pulse Rate 75 112 H Pulse Rate [Right] Respiratory Rate Blood Pressure 120/51 L 120/59 L 109/66 L Blood Pressure [Right Arm] Blood Pressure Mean 77 67 Blood Pressure Mean [Right Arm] Blood Pressure Source Blood Pressure Source [Right Arm] 02 Sat by Pulse Oximetry 100 98 98 Oxygen Delivery Method Room Air Room Air Room Air 07/23/24 15:30 07/23/24 16:01 07/23/24 16:52 Temperature 98.8 F Temperature Source Oral Pulse Rate 76 79 75 Pulse Rate [Right] Respiratory Rate 16 Blood Pressure 102/64 L 136/78 118/75 Blood Pressure [Right Arm] Blood Pressure Mean 86 Blood Pressure Mean [Right Arm] Blood Pressure Source Automatic Cuff Blood Pressure Source [Right Arm] 02 Sat by Pulse Oximetry 98 99 Oxygen Delivery Method Room Air Room Air Room Air Lab Data Lab Results 07/23/24 12:38: WBC 6.1, RBC 3.87 L, Hgb 12.2, Hct 36.6 L, MCV 94.6, MCH 31.6 H, MCHC 33.4, RDW 13.6, Plt Count 223, MPV 8.6, Neut % (Auto) 70.2, Lymph % (Auto) 21.8, [place] % (Auto) 4.8, Eos % (Auto) 2.9, Baso % (Auto) 0.4, Neut # (Auto) 4.2, Lymph # (Auto) 1.3, [place] # (Auto) 0.3, Eos # (Auto) 0.2, Baso # (Auto) 0.0, Sodium 139, Potassium 3.5, Chloride 109 H, Carbon Dioxide 24, Anion Gap 9.5, BUN 7, Creatinine 0.60, Estimated GFR 127, Est GFR ( Amer) 154, Glucose 76, Lactate 1.8, Calcium 8.7, Total Bilirubin 0.4, AST 26, ALT 29, Alkaline Phosphatase 64, C-Reactive Protein 3.2, Total Protein 6.6, Albumin 3.9, Globulin 2.7, Albumin/Globulin Ratio 1.4, Lipase 53, Serum HCG, Qual Negative, Urine Color Yellow, Urine Appearance Sl cloudy, Urine pH 6.0, Ur Specific [place] 1.020, Urine Protein Trace, Urine Glucose (UA) Negative, Urine Ketones Negative, Urine Blood 2+ A, Urine Nitrate Negative, Urine Bilirubin Negative, Urine Urobilinogen 0.2, Ur Leukocyte Esterase 2+ A, Urine RBC 10-20, Urine WBC 10-20, Ur Squamous Epith Cells 5-10, Urine Bacteria 2+, HIV 1&2 Antibody Rapid Nonreactive Orders (Tests/Meds): ED MEDICATIONS Discontinued Medications Generic Name Dose Route Start Last Admin Trade Name Buckyq PRN Reason Stop Dose Admin Cefdinir 300 mg 07/23/24 16:21 07/23/24 16:46 Cefdinir 300mg Capsule PO 07/23/24 16:22 300 mg ONCE ONE Administration Hydromorphone HCl 0.5 mg 07/23/24 14:41 07/23/24 14:57 Hydromorphone 2mg/Ml Syringe IV 07/23/24 14:42 0.5 mg ONCE ONE Administration Lactated Ringer's 1,000 mls @ 999 mls/hr 07/23/24 12:39 07/23/24 13:16 Lactated Ringer's 1000 Ml Bag IV 07/23/24 13:39 999 mls/hr .Q1H1M ONE Administration Iopamidol 75 ml 07/23/24 14:37 07/23/24 14:38 Iopamidol-370 (76%);100ml Bottle IV 07/23/24 14:38 75 ml ONCE ONE Administration Ketorolac Tromethamine 15 mg 07/23/24 12:39 07/23/24 13:16 Ketorolac 30mg/Ml Vial IV 07/23/24 12:40 15 mg ONCE ONE Administration Ondansetron HCl 4 mg 07/23/24 12:39 07/23/24 13:20 Ondansetron 4mg/2ml Vial IV 07/23/24 12:40 Not Given ONCE ONE Phenazopyridine HCl 200 mg 07/23/24 16:21 07/23/24 16:46 Phenazopyridine 200mg Tablet PO 07/23/24 16:22 200 mg ONCE ONE Administration Sodium Chloride 10 ml 07/23/24 14:37 07/23/24 14:38 Sodium Chloride 0.9% 10ml Syr (Rad Only) IV 08/22/24 14:36 10 ml NEEDED PRN Administration Maintain IV Site ORDERS Category Date Time Status CT abdomen pelvis w con Stat Cat Scan 07/23/24 13:17 Completed US transvaginal Stat Exams 07/23/24 12:40 Completed CBC w/Auto Diff [Complete Blood Count Auto Diff] Stat Lab 07/23/24 12:38 Completed CMP [Comprehensive Metabolic Panel] Stat Lab 07/23/24 12:38 Completed CRP [C-Reactive Protein] Stat Lab 07/23/24 12:38 Completed HIV (1&2) Antibody Rapid Stat Lab 07/23/24 12:38 Completed Hep C Ab with Reflex to RNA Stat Lab 07/23/24 12:38 Received Lactic Acid Stat Lab 07/23/24 12:38 Completed Lipase Stat Lab 07/23/24 12:38 Completed Serum [HCG Qualitative, Serum] Stat Lab 07/23/24 12:38 Completed Trichomonas Vaginalis, LAUREN Stat Lab 07/23/24 12:22 Received UA [Urinalysis and Microscopic] Stat Lab 07/23/24 12:38 Completed Urine Culture Stat Micro 07/23/24 12:38 Received Medical Decision Narrative: 19-year-old female history of ovarian cyst, recent IUD placement presenting with abdominal pain. Patient states that abdominal pain started today, 07/23 at 6 AM. She was making morning feed for her child. Not doing anything exertional. Was moderate to severe in intensity at onset, did not radiate, associated with nausea without vomiting. Patient states that it still does not radiate, severe in intensity, made worse with walking. Right lower quadrant/suprapubic. Has never had anything like this in the past. No urinary symptoms, no vaginal discharge or bleeding. No chance of or history of STD. History was obtained via conversation with patient. On arrival, patient hemodynamically stable, alert, oriented x4, appropriate, GCS 15, moving all extremities spontaneously, pupils equal and reactive to light. Full physical exam performed and significant for uncomfortable appearing female who is laying still in bed. Abdomen is soft, nondistended, tender with voluntary guarding suprapubic region and right lower quadrant. No right upper quadrant tenderness. No rebound or rigidity. No flank tenderness. No overlying skin changes. No evidence of inguinal hernia. Differential includes PUD, gastritis, enteritis, gastroenteritis, pancreatitis, SBO, colitis, diverticulitis, nephrolithiasis, UTI, , cholecystitis, choledocholithiasis, appendicitis, hepatitis, torsion, less likely aortic pathology, mesenteric ischemia among others. Patient placed on continuous cardiac monitoring and continuous pulse ox with initial blood pressure 120/59, heart rate 87, saturation 99% on room air. Patient was given fluids, Toradol, Zofran for symptomatic management and correction of underlying abnormalities. Workup independently interpreted and significant for nonactionable CBC. Patient's chemistry nonactionable as well. Lipase negative. hCG negative. Gonorrhea, chlamydia, trichomonas pending. Pelvic ultrasound ordered. On independent interpretation of pelvic ultrasound, flow to both ovaries, no evidence of large cyst. Because patient still having persistent symptoms on reevaluation, CT abdomen pelvis was ordered. Patient still in pain, given 0.5 mg Dilaudid. On independent interpretation of CT imaging, no acute intra-abdominal abnormality. IUD appears to be in place. Prior to final evaluation, disposition, radiology read, care handed off to oncoming physician. Heel Former disclaimer Much of this encounter note is an electronic oncology transplant network manager spoken language to printed text. Electronic oncology transplant network manager of the spoken language may permit errors. Although I have reviewed the note, some errors may still exist. DO Osorio: On my assessment of the patient, she is resting comfortably and is feeling better. CT scan not concerning for acute appendicitis. Workup ultimately is very reassuring. Urine is concerning for infection, so bladder spasms could be explaining her pain. Ultimately after shared decision-making with the patient, I feel that she is appropriate for discharge with antibiotics including cefdinir to treat UTI as well as Pyridium for symptoms. She was given strict return precautions and was discharged after all questions were answered. Critical Care <Hudson Bueno MD - Last Filed: 07/23/24 14:56> Critical Care Time Critical Care Time: No
[2024-07-23] MEDS: KETOROLAC 30MG/ML VIAL 15 MG IV (13:16)
[2024-07-23] MEDS: LACTATED RINGERS 1000ML 1,000 ML 999 ML IV (13:16)
--- NOTE | 2024-07-23 13:17 | CT_ITS ---
FINAL REPORT TECHNIQUE: Postcontrast axial images of the abdomen and pelvis were obtained. This study was performed with techniques to keep radiation doses as low as reasonably achievable, (ALARA). Individualized dose reduction techniques using automated exposure control or adjustment of mA and/or kV according to the patient''s size were employed. CLINICAL HISTORY: RLQ pain COMPARISON: 10/26/2023 FINDINGS: Abdomen: No acute density is seen within the lung bases. The gallbladder is unremarkable. Solid abdominal organs are unremarkable. No bowel obstruction is present. There is no free air. No fluid collection is seen. There is no adenopathy. Pelvis: The appendix is normal. No bowel wall thickening is present. There is no free fluid. No pelvic mass is seen. There has been replacement of the IUD since the prior exam. The IUD is in good position within the central uterus. IMPRESSION: Unremarkable exam Reviewed, Interpreted and Dictated by Asad Quiros MD Transcribed by Norah Poe Authenticated and [facility]
[2024-07-23 13:45] LABS: HIV (1&2) Antibody Rapid NONREACTIVE (NONREACTIVE)
[2024-07-23 14:31] LABS: HCG Qualitative, Serum Negative (Negative)
--- NOTE | 2024-07-23 14:34 | PC.NURSE ---
Pt requested that I call her mother and ask her to come up here. Spoke with mother and she advised she would be here in a few minutes
[2024-07-23] MEDS: SODIUM CHLORIDE 0.9% 10ML SYR (RAD ONLY) 10 ML IV (14:38)
[2024-07-23] MEDS: IOPAMIDOL-370 (76%);100ML BOTTLE 75 ML IV (14:38)
[2024-07-23] MEDS: HYDROMORPHONE 2MG/ML SYRINGE 0.5 MG IV (14:57)
[2024-07-23 15:05] LABS: C-Reactive Protein 3.2 mg/L (0-4)
[2024-07-23] MEDS: PHENAZOPYRIDINE 200MG TABLET 200 MG PO (16:46)
[2024-07-23] MEDS: CEFDINIR 300MG CAPSULE 300 MG PO (16:46)
[2024-07-24 08:27] LABS: HCV Ab Non Reactive (Non Reactive)
--- NOTE | 2024-07-24 09:47 | PC.NURSE ---
urine culture discussed with dr glover, no new orders
[2024-07-25 06:28] LABS: Trichomonas Vaginalis, NAA Negative (Negative)
[2024-07-25 07:13] LABS: Neisseria gonorrhoeae, NAA Negative (Negative)
--- NOTE | 2024-07-25 10:17 | PC.NURSE ---
final urine culture discussed with dr garcia, no new orders
== END 2024-07-23 16:53 | disposition home or self-care (01) ==
PROVIDERS: Emergency Medicine; Emergency Provider Emergency Medicine; PCP Physician Assistant
DX: N39.0 Urinary tract infection, site not specified (principal); B96.29 Other Escherichia coli [E. coli] as the cause of diseases classified elsewhere; R10.2 Pelvic and perineal pain; R30.0 Dysuria; R11.0 Nausea
CPT/HCPCS: 74177; 76830; 80053; 81001; 83605; 83690; 84703; 85025; 86140; 86803; 87086; 87088; 87186; 87389; 87491; 87591; 87661; 96361; 96374; 96375; 99285; J1170; J1885; J2405; J7120; Q9967

== ENCOUNTER 2024-07-25 22:42 | Emergency (ER) | payer OTHER, SELFPAY ==
--- NOTE | 2024-07-25 22:41 | ECG_ITS ---
APPROVED REPORT Exam: Resting ECG HR:80 bpm ECG Measurements Heart Rate 80 AXES TX 147 P 36 QRSd 76 QRS 40 QT 345 T 30 QTc 382 Conclusion SINUS RHYTHM NORMAL ECG UNCONFIRMED REPORT Electronically signed by : NORY FINLEY, 07/27/2024 04:26:35
[2024-07-25 22:43] VITALS: BP 131/64; PULSE 98; RESP 21; TEMP 36.8; O2SAT 98; BMI 31.9
[2024-07-25 22:47] VITALS: PULSE 98
--- NOTE | 2024-07-25 22:47 | XR_ITS ---
PROCEDURE INFORMATION: Exam: XR Chest Exam date and time: 07/25/2024 11:50 PM Age: 19 years old Clinical indication: Pain; Chest pressure; Additional info: Left chest pain TECHNIQUE: Imaging protocol: Radiologic exam of the chest. Views: 2 views. COMPARISON: CR XR CHEST PORTABLE 07/27/2022 6:23 PM FINDINGS: Lungs: Unremarkable. No consolidation. Pleural spaces: Unremarkable. No pleural effusion. No pneumothorax. Heart/Mediastinum: Unremarkable. No cardiomegaly. Vasculature: Unremarkable. Bones/joints: Unremarkable. IMPRESSION: No acute findings.
--- NOTE | 2024-07-25 22:48 | PC.NURSE ---
ASA and Nitro deferred by provider at bedside.
[2024-07-25 22:55] LABS: Basophils # 0.1 K/mm3 (0-0.2); Basophils % 0.9 % (0.1-2.0); Eosinophils # 0.2 K/mm3 (0.0-0.4); Eosinophils % 2.9 % (0.1-12.0); Hematocrit 39.6 % (37.0-47.0); Hemoglobin 13.5 g/dL (12.2-16.2); Lymphocytes # 2.1 K/mm3 (0.7-4.5); Lymphocytes % 28.8 % (10-50); Mean Corpuscular Hemoglobin 32.1 pg (27.0-31.2); Mean Corpuscular Volume 94.5 fl (81-99); Mean Platelet Volume 8.5 fl (7.4-10.4); Monocytes # 0.3 K/mm3 (0.1-1.0); Monocytes % 4.3 % (1.7-9.3); Neutrophils # 4.6 K/mm3 (1.8-7.8); Neutrophils % 63.1 % (37.0-80.0); Platelet Count 271 K/mm3 (142-424); Red Blood Count 4.19 M/mm3 (4.20-5.40); Red Cell Distribution Width 13.8 % (11.5-17.5); White Blood Count 7.3 K/mm3 (4.5-13.0)
[2024-07-25 22:58] LABS: Albumin Level 4.7 g/dl (3.5-5.0); Chloride 106 mmol/L (98-107)
--- NOTE | 2024-07-25 22:58 | ED_ITS ---
Discharge Plan Disposition Patient Disposition: Home, Self-Care Prescriptions Prescriptions: No Action escitalopram oxalate 20 mg tablet 20 mg PO DAILY Qty: 30 0RF cefdinir 300 mg capsule 300 mg PO BID 10 Days Qty: 20 0RF phenazopyridine 200 mg tablet 200 mg PO Q8H PRN (Reason: pain) Qty: 6 0RF Referrals Follow up/Referrals: Kaity Carlson PA [Primary Care Provider] - See instructions Activity Restrictions/Add. Instructions Additional Instructions/Restrictions: Please follow-up with your primary care provider. Please return to the emergency department if you develop any new or worsening symptoms or become concerned for your health. Clinical Impressions Clinical Impression: Chest pain Print Language Print Language: Italian Discharge ED Provider: Omar Manley <Hudson Bueno MD - Last Filed: 07/25/24 23:09> General Chief Complaint: Chest Pain Stated Complaint: Chest Pain, Anxiety Time Seen by Provider: 07/25/24 22:48 Mode of Arrival: Ambulatory Source of Information: Patient Limitations: No Limitations Description of Symptoms (Recalled from ER Triage Doc. by RN): 19F presents from home with c/o left sided chest pain that radiates up to her left ear. Patient reports history of anxiety and is currently changing her medication dose. Patient reports feeling hot all over and her legs are numb. History of Present Illness HPI narrative: Please note that above description of symptoms, in this electronic medical record under categorization of recalled from ER triage doctor by RN are reflective of an initial nursing assessment, however, is not reflective of my full history and physical exam that was personally taken and clarified. Consequentially, this preceding description of symptoms, which may include the patient's categorized chief complaint in the EMR, do not reflect my personal clinical impression, and the ultimate description of history of present illness and patient stated complaints should be deferred to this section of the note. Unless stated otherwise or congruent with this section of the note, additional signs, symptoms, or incongruence should be interpreted as inaccurate with my clinical impression. Related Data Previous Rx's ?Medication ?Instructions ?Recorded escitalopram oxalate 20 mg tablet 20 mg PO DAILY #30 tabs 07/20/24 cefdinir 300 mg capsule 300 mg PO BID 10 days #20 caps 07/23/24 phenazopyridine 200 mg tablet 200 mg PO Q8H PRN pain 6 doses #6 07/23/24 tabs Allergies Allergy/AdvReac Type Severity Reaction Status Date / Time No Known Allergies Allergy Verified 06/14/24 13:01 [facility] <Hudson Bueno MD - Last Filed: 07/25/24 23:09> [facility] Disclaimer: The information contained in this section may have been updated after the patient was seen, as this information can be updated by other users. Medical History (Updated 07/26/24 @ 00:43 by Mary Watson RN) Recurrent streptococcal pharyngitis Depression Anxiety Surgical History H/O wisdom tooth extraction Family History Other Substance abuse Social History (Updated 06/14/24 @ 13:08 by DIEGO Hernandez) Smoking Status: Current every day smoker second hand exposure: No alcohol intake: never substance use type: denies use current occupational status: other Travel in the last 8 weeks: None housing: house number of children: 0 <Hudson Bueno MD - Last Filed: 07/25/24 23:09> ROS Obtained: Yes All systems reviewed & no additional complaints except as documented Physical Exam <Hudson Bueno MD - Last Filed: 07/25/24 23:09> General General appearance: alert and anxious Neck Neck exam: Present trachea midline Chest Chest inspection: Present normal inspection and symmetric chest wall rise Respiratory Respiratory exam: Present normal lung sounds bilaterally; Absent respiratory distress, wheezes, stridor, accessory muscle use or prolonged expiratory phase Cardiovascular Cardiovascular exam: Present regular rate, normal rhythm and other (Pulses equal and symmetric in upper and lower extremities) Extremities Exam Extremities exam: Absent edema Neurological Exam Neurological exam: Present alert, oriented X3 and CN II-XII intact Skin Skin exam: Present warm and dry; Absent cyanosis, diaphoresis or pallor HEART Score <Hudson Bueno MD - Last Filed: 07/25/24 23:09> HEART Score HEART Score assessment performed?: No <Omar Manley MD - Last Filed: 07/26/24 00:44> HEART Score HEART Score assessment performed?: Yes History (anamnesis): Slightly suspicious ECG: Normal Age: <45 years Risk factors: No known risk factors Troponin: </= normal limit HEART Score: 0 Critical Care <Hudson Bueno MD - Last Filed: 07/25/24 23:09> Critical Care Time Critical Care Time: No Medical Decision Making <Hudson Bueno MD - Last Filed: 07/25/24 23:09> Medical Records Medical records reviewed: Yes I reviewed the patient's medical records. Regis Inquiry Pt receiving controlled substance: No Regis was queried for this patient: No Vital Signs Vital Signs: 07/25/24 22:43 07/25/24 22:47 Temperature 98.2 F Temperature Source Oral Pulse Rate 98 H Pulse Rate [Right] 98 H Respiratory Rate 21 Blood Pressure [Left Arm] 131/64 Blood Pressure Mean [Left Arm] 86 Blood Pressure Source [Left Arm] Automatic Cuff Blood Pressure Position [Left Arm] Supine 02 Sat by Pulse Oximetry 98 Oxygen Delivery Method Room Air Lab Data Labs: Lab Results 07/25/24 22:47: WBC 7.3, RBC 4.19 L, Hgb 13.5, Hct 39.6, MCV 94.5, MCH 32.1 H, MCHC 34.0, RDW 13.8, Plt Count 271, MPV 8.5, Neut % (Auto) 63.1, Lymph % (Auto) 28.8, [place] % (Auto) 4.3, Eos % (Auto) 2.9, Baso % (Auto) 0.9, Neut # (Auto) 4.6, Lymph # (Auto) 2.1, Pickens # (Auto) 0.3, Eos # (Auto) 0.2, Baso # (Auto) 0.1, Sodium 139, Potassium 3.6, Chloride 106, Carbon Dioxide 27, Anion Gap 9.6, BUN 9 D, Creatinine 0.70, Estimated Creat Clear 182, Estimated GFR 107, Est GFR ( Amer) 129, Glucose 71 L, Calcium 9.9, Total Bilirubin 0.5, AST 25, ALT 25, Alkaline Phosphatase 74, Troponin I < 0.01, Total Protein 8.0, Albumin 4.7, Globulin 3.3 H, Albumin/Globulin Ratio 1.4, HCG, Quant < 2, HIV 1&2 Antibody Rapid Nonreactive 07/25/24 22:47 07/25/24 22:47 Response Orders (Tests/Meds): ED MEDICATIONS Generic Name Dose Route Start Last Admin Trade Name Freq PRN Reason Stop Dose Admin Sodium Chloride 10 ml 07/25/24 22:47 Sodium Chloride 0.9% 10ml Flush Syringe IV 08/24/24 22:46 NEEDED PRN Maintain IV Site Sodium Chloride 8 ml 07/25/24 23:05 07/25/24 23:11 Sodium Chloride 0.9% 10ml Vial IV 08/24/24 23:04 8 ml NEEDED PRN Administration dilute pepcid Discontinued Medications Generic Name Dose Route Start Last Admin Trade Name Tray PRN Reason Stop Dose Admin Belladonna Alkaloids 60 ml 07/25/24 23:05 07/25/24 23:11 Belladonna Alkaloids 60 Ml Ml PO 07/25/24 23:06 60 ml ONCE ONE Administration Famotidine 20 mg 07/25/24 23:05 07/25/24 23:11 Famotidine 20mg/2ml Vial IV 07/25/24 23:06 20 mg ONCE ONE Administration ORDERS Category Date Time Status XR chest 2V Stat Exams 07/25/24 22:47 Taken Complete Blood Count Auto Diff Stat Lab 07/25/24 22:47 Completed Comprehensive Metabolic Panel Stat Lab 07/25/24 22:47 Completed HCG,Quantitative Stat Lab 07/25/24 22:47 Completed HIV (1&2) Antibody Rapid Stat Lab 07/25/24 22:47 Completed Hep C Ab with Reflex to RNA Stat Lab 07/25/24 22:47 Received Troponin I Q3H Lab 07/25/24 22:47 Completed Troponin I Q3H Lab 07/26/24 02:00 Ordered Troponin I Q3H Lab 07/26/24 05:00 Ordered MDM Narrative Medical Decision Narrative: 19-year-old female history of anxiety and depression presenting with chest pain. Patient states she was sitting on the couch a couple hours prior to this visit started having epigastric abdominal pain radiating upward toward her chest and substernal chest pain. Does not radiate, moderate in intensity, feels like a burning. States this feels different than her anxiety, but she also has concurrent bilateral foot tingling, feeling of right sided warmth. No weakness associated. Patient does not have any shortness of breath, nausea or vomiting, diaphoresis. States that she recently had a social stressor and is no longer talking to the father of her child within the last 48 hours. History obtained with patient. On arrival, anxious, crying, hemodynamically stable. Lungs are clear to auscultation, cardiac exam without murmurs gallops or rubs, pulses equal and symmetric in upper and lower extremities. No lower extremity edema. No DVT or PE risk factors. Differential includes anxiety, GERD, less likely ACS, pneumonia, pneumothorax, among others. Patient PERC negative, D-dimer not deemed necessary. She was given GI cocktail and Pepcid for management. Prior to hematologic workup and imaging, care handed off to oncoming physician. 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 Electronic enrichment assistant of the spoken language may permit errors. Although I have reviewed the note, some errors may still exist. <Omar Manley MD - Last Filed: 07/26/24 00:44> Vital Signs Vital Signs: 07/25/24 22:43 07/25/24 22:47 Temperature 98.2 F Temperature Source Oral Pulse Rate 98 H Pulse Rate [Right] 98 H Respiratory Rate 21 Blood Pressure [Left Arm] 131/64 Blood Pressure Mean [Left Arm] 86 Blood Pressure Source [Left Arm] Automatic Cuff Blood Pressure Position [Left Arm] Supine 02 Sat by Pulse Oximetry 98 Oxygen Delivery Method Room Air Lab Data Labs: Lab Results 07/25/24 22:47: WBC 7.3, RBC 4.19 L, Hgb 13.5, Hct 39.6, MCV 94.5, MCH 32.1 H, MCHC 34.0, RDW 13.8, Plt Count 271, MPV 8.5, Neut % (Auto) 63.1, Lymph % (Auto) 28.8, [place] % (Auto) 4.3, Eos % (Auto) 2.9, Baso % (Auto) 0.9, Neut # (Auto) 4.6, Lymph # (Auto) 2.1, [place] # (Auto) 0.3, Eos # (Auto) 0.2, Baso # (Auto) 0.1, Sodium 139, Potassium 3.6, Chloride 106, Carbon Dioxide 27, Anion Gap 9.6, BUN 9 D, Creatinine 0.70, Estimated Creat Clear 182, Estimated GFR 107, Est GFR ( Amer) 129, Glucose 71 L, Calcium 9.9, Total Bilirubin 0.5, AST 25, ALT 25, Alkaline Phosphatase 74, Troponin I < 0.01, Total Protein 8.0, Albumin 4.7, Globulin 3.3 H, Albumin/Globulin Ratio 1.4, HCG, Quant < 2, HIV 1&2 Antibody Rapid Nonreactive Response Orders (Tests/Meds): ED MEDICATIONS Generic Name Dose Route Start Last Admin Trade Name Freq PRN Reason Stop Dose Admin Sodium Chloride 10 ml 07/25/24 22:47 Sodium Chloride 0.9% 10ml Flush Syringe IV 08/24/24 22:46 NEEDED PRN Maintain IV Site Sodium Chloride 8 ml 07/25/24 23:05 07/25/24 23:11 Sodium Chloride 0.9% 10ml Vial IV 08/24/24 23:04 8 ml NEEDED PRN Administration dilute pepcid Discontinued Medications Generic Name Dose Route Start Last Admin Trade Name Freq PRN Reason Stop Dose Admin Belladonna Alkaloids 60 ml 07/25/24 23:05 07/25/24 23:11 Belladonna Alkaloids 60 Ml Ml PO 07/25/24 23:06 60 ml ONCE ONE Administration Famotidine 20 mg 07/25/24 23:05 07/25/24 23:11 Famotidine 20mg/2ml Vial IV 07/25/24 23:06 20 mg ONCE ONE Administration ORDERS Category Date Time Status XR chest 2V Stat Exams 07/25/24 22:47 Taken Complete Blood Count Auto Diff Stat Lab 07/25/24 22:47 Completed Comprehensive Metabolic Panel Stat Lab 07/25/24 22:47 Completed HCG,Quantitative Stat Lab 07/25/24 22:47 Completed HIV (1&2) Antibody Rapid Stat Lab 07/25/24 22:47 Completed Hep C Ab with Reflex to RNA Stat Lab 07/25/24 22:47 Received Troponin I Q3H Lab 07/25/24 22:47 Completed Troponin I Q3H Lab 07/26/24 02:00 Ordered Troponin I Q3H Lab 07/26/24 05:00 Ordered MDM Narrative Medical Decision Narrative: 19-year-old female history of anxiety and depression presenting with chest pain. Patient states she was sitting on the couch a couple hours prior to this visit started having epigastric abdominal pain radiating upward toward her chest and substernal chest pain. Does not radiate, moderate in intensity, feels like a burning. States this feels different than her anxiety, but she also has concurrent bilateral foot tingling, feeling of right sided warmth. No weakness associated. Patient does not have any shortness of breath, nausea or vomiting, diaphoresis. States that she recently had a social stressor and is no longer talking to the father of her child within the last 48 hours. History obtained with patient. On arrival, anxious, crying, hemodynamically stable. Lungs are clear to auscultation, cardiac exam without murmurs gallops or rubs, pulses equal and symmetric in upper and lower extremities. No lower extremity edema. No DVT or PE risk factors. Differential includes anxiety, GERD, less likely ACS, pneumonia, pneumothorax, among others. Patient PERC negative, D-dimer not deemed necessary. She was given GI cocktail and Pepcid for management. Prior to hematologic workup and imaging, care handed off to oncoming physician. 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 Electronic enrichment assistant of the spoken language may permit errors. Although I have reviewed the note, some errors may still exist. Vineet REGAN: I assumed care of the patient at the time of handoff from the prior provider. On reassessment patient reports some symptomatic improvement after interventions. Laboratory workup interpreted by me and significant for undetectable troponin, otherwise unremarkable labs. Chest x-ray interpreted by me and shows no evidence of acute pneumothorax, pneumonia, rib fracture. Interactive discussion was had with patient regarding her presentation. Low concern for emergent pathology at this time based on history and exam. Second troponin was considered but deemed necessary given age and risk factors and duration of symptoms. Patient discharged in stable condition with return precautions.
[2024-07-25 22:59] LABS: Potassium 3.6 mmoL/L (3.5-5.1); Sodium 139 mmol/L (136-145)
[2024-07-25 23:01] LABS: Alanine Aminotransferase 25 U/L (12-78); Anion Gap 9.6 mEq/L (5-15); Aspartate Amino Transferase 25 U/L (14-36); Blood Urea Nitrogen 9 mg/dl (7-17); Carbon Dioxide 27 mmol/L (22.0-30.0); Creatinine Clearance Estimated 182 mL/min (50-200); Estimated Glomerular Filt Rate 107 ml/min (>60); GFR (African American) 129 ML/MIN (>60)
[2024-07-25 23:02] LABS: Albumin/Globulin Ratio 1.4 (1.1-1.8); Alkaline Phosphatase 74 U/L (38-126); Bilirubin,Total 0.5 mg/dl (0.2-1.3); Calcium 9.9 mg/dl (8.4-10.2); Globulin 3.3 g/dL (1.3-3.2); Glucose 71 mg/dl (74-100)
[2024-07-25] MEDS: FAMOTIDINE 20MG/2ML VIAL 20 MG IV (23:11)
[2024-07-25] MEDS: BELLADONNA ALKALOIDS 60 ML ML PO (23:11)
[2024-07-25] MEDS: SODIUM CHLORIDE 0.9% 10ML VIAL 8 ML IV (23:11)
[2024-07-25 23:23] LABS: Troponin I < 0.01 ng/ml (0.00-0.034)
[2024-07-25 23:39] LABS: HCG,Quantitative < 2 mIU/ml (0-5.42)
[2024-07-26] LABS: HIV (1&2) Antibody Rapid NONREACTIVE (NONREACTIVE)
[2024-07-26 00:43] VITALS: BP 133/81; PULSE 74; RESP 16; TEMP 36.6; O2SAT 97
[2024-07-27 07:13] LABS: HCV Ab Non Reactive (Non Reactive)
== END 2024-07-26 00:44 | disposition home or self-care (01) ==
PROVIDERS: Emergency Provider Emergency Medicine; PCP Physician Assistant
DX: R07.9 Chest pain, unspecified (principal); F41.1 Generalized anxiety disorder
CPT/HCPCS: 71046; 80053; 84484; 84702; 85025; 86803; 87389; 93005; 96374; 99284; S0028

== ENCOUNTER 2024-08-15 16:15 | Outpatient (CLI) | payer OTHER, SELFPAY ==
[2024-08-15 18:15] LABS: HIV (1&2) Antibody Rapid NONREACTIVE (NONREACTIVE)
[2024-08-17 08:28] LABS: HCV Ab Non Reactive (Non Reactive)
[2024-08-17 10:19] LABS: Rapid Plasma Reagin Ab Titer Non Reactive titer (NonRea<1:1)
== END 2024-08-15 23:59 | disposition home or self-care (01) ==
PROVIDERS: PCP Physician Assistant; Visit Provider Obstetrics & Gynecology
DX: R39.9 Unspecified symptoms and signs involving the genitourinary system (principal)
CPT/HCPCS: 36415; 86593; 86803; 87389

== ENCOUNTER 2024-08-21 08:43 | Emergency (ER) | payer OTHER, SELFPAY ==
[2024-08-21 09:00] VITALS: BP 133/96; PULSE 93; RESP 19; TEMP 36.8; O2SAT 100; BMI 34.3
--- NOTE | 2024-08-21 09:17 | EXP.UTC ---
Discharge Plan Disposition Patient Disposition: Home, Self-Care Condition: Good Prescriptions Prescriptions: New ondansetron 4 mg tablet,disintegrating 4 mg PO Q8H PRN (Reason: nausea and vomiting) Qty: 10 0RF No Action phenazopyridine 200 mg tablet 200 mg PO Q8H PRN (Reason: pain) Qty: 6 0RF escitalopram oxalate 20 mg tablet 20 mg PO DAILY aripiprazole 5 mg tablet 5 mg PO DAILY nitrofurantoin monohyd/m-cryst 100 mg capsule 100 mg PO DAILY desvenlafaxine succinate 50 mg tablet extended release 24 hr 50 mg PO DAILY Referrals Follow up/Referrals: Kaity Carlson PA [Primary Care Provider] - See instructions Activity Restrictions/Add. Instructions Additional Instructions/Restrictions: Drink extra fluids with and between meals. If you have difficulty drinking, try very small amounts of water or suck on ice chips. ? Avoid fruit juices, as these do not replace minerals and can actually increase diarrhea. ? Children and adults can use sports drinks to replenish electrolytes. Younger children and infants should use products formulated for children, like oral rehydration solutions. ? Eat food in small amounts and let your stomach recover. ? Get lots of rest. You may feel tired or weak. ? No greasy or fried foods for the next 24-48 hours BRAT diet Bananas Rice Apples and Robeline ? Make sure to drink plenty of liquids ? Return if needed ? Straight to ER if any life threatening symptoms ? Zofran as prescribed ? Follow up with family doctor in the next 48-72 hours if no improvement or any worsening of symptoms Clinical Impressions Clinical Impression: Nausea & vomiting Stand Alone Forms Stand Alone Forms: Work/School Release Instructions Patient Instructions: Nausea and Vomiting-Adult Print Language Print Language: Serbian Discharge ED Provider: Rocío Fuentes [facility] [place] HPI General Stated complaint: abd pain, vomiting Mode of Arrival: Ambulatory Source of Information: Patient Limitations: No Limitations Time Seen by Provider: 08/21/24 09:17 Description of Symptoms (Recalled from Triage Doc. by RN): PATIENT C/O NAUSEA AND VOMITING THAT STARTED LAST NIGHT HEENT Symptoms (Recalled from RN notes): No Resp Symptoms (Recalled from RN notes): No Skin Symptoms (Recalled from RN notes): No MS Symptoms (Recalled from RN notes): No Functional Status (Recalled from RN notes): WNL History of Present Illness Provider Complaint: Patient states that she started last night with N/V States that she did recently start a new medication and not sure if it is causing an upset stomach or if it may be something else so today she came in to get checked and get something for the NV, states that she is currently on medication also for UTI and those symptoms have improved Related Data Home Medications ?Medication ?Instructions ?Recorded ?Confirmed aripiprazole 5 mg tablet 5 mg PO DAILY 08/21/24 08/21/24 desvenlafaxine succinate 50 mg 50 mg PO DAILY 08/21/24 08/21/24 tablet,extended release 24 hr escitalopram oxalate 20 mg tablet 20 mg PO DAILY 08/21/24 08/21/24 nitrofurantoin 100 mg PO DAILY 08/21/24 08/21/24 monohydrate/macrocrystals 100 mg capsule Previous Rx's ?Medication ?Instructions ?Recorded phenazopyridine 200 mg tablet 200 mg PO Q8H PRN pain 6 doses #6 07/23/24 tabs ondansetron 4 mg disintegrating 4 mg PO Q8H PRN nausea and 08/21/24 tablet vomiting #10 tabs Allergies Allergy/AdvReac Type Severity Reaction Status Date / Time No Known Allergies Allergy Verified 08/15/24 16:01 Worker's Comp Is this a Worker's Comp case?: No [facility] Disclaimer: The information contained in this section may have been updated after the patient was seen, as this information can be updated by other users. Medical History (Updated 08/21/24 @ 09:28 by Rocío Fuentes APRN) Recurrent streptococcal pharyngitis Depression Anxiety Surgical History H/O wisdom tooth extraction Family History Other Substance abuse Social History (Updated 06/14/24 @ 13:08 by DARRYL Hernandez Smoking Status: Current every day smoker second hand exposure: No alcohol intake: never substance use type: denies use current occupational status: other Travel in the last 8 weeks: None housing: house number of children: 0 ROS Obtained: Yes All systems reviewed & no additional complaints except as documented and Yes Systems reviewed as appropriate & no additional complaints except as documented Constitutional Constitutional: Reports system reviewed and no additional complaints, except as documented, Reports as per HPI, Denies body ache, Denies chills, Denies fever(s) and Denies headache(s) ENT Ears, Nose, Mouth, and Throat: Reports system reviewed and no additional complaints, except as documented, Reports as per HPI and Denies headache(s) Cardiovascular Cardiovascular: Reports system reviewed and no additional complaints, except as documented and Reports as per HPI Respiratory Respiratory: Reports system reviewed and no additional complaints, except as documented and Reports as per HPI Gastrointestinal Gastrointestingal: Reports system reviewed and no additional complaints, except as documented, as per HPI, nausea and vomiting Genitourinary Female Genitourinary: Reports system reviewed and no additional complaints, except as documented, Reports as per HPI, Denies dysuria and Denies hematuria Neurologic Neurologic: Denies headache(s) Physical Exam General General appearance: alert and in no apparent distress ENT ENT exam: Present normal exam, normal oropharynx and mucous membranes dry Respiratory Respiratory exam: Present normal lung sounds bilaterally; Absent respiratory distress or wheezes Cardiovascular Cardiovascular exam: Present regular rate, normal rhythm and normal heart sounds Abdominal Exam Abdominal exam: Present soft and normal bowel sounds; Absent distention or tenderness Neurological Exam Neurological exam: Present alert, oriented X3 and normal gait Medical Decision Making Medical Records Screening: Per USPSTF and CDC recommendations, given the prevalence of disease in our region, it is our hospital?s policy to screen for HIV and viral Hepatitis for all patients aged 18 and over and those with ongoing risk factors. Regis Inquiry Pt receiving controlled substance: No Regis was queried for this patient: No Vital Signs: 08/21/24 09:00 Temperature 98.2 F Temperature Source Oral Pulse Rate [Left Brachial] 93 H Respiratory Rate 19 Blood Pressure [Left Arm] 133/96 H Blood Pressure Mean [Left Arm] 108 Blood Pressure Source [Left Arm] Automatic Cuff Blood Pressure Position [Left Arm] Sitting 02 Sat by Pulse Oximetry 100 Oxygen Delivery Method Room Air Lab Data Lab results reviewed: Yes I reviewed the patient's lab results.
[2024-08-21 09:21] LABS: UTC Pregnancy Test, Urine Negative (Negative)
[2024-08-21 09:30] VITALS: BP 133/96; PULSE 93; RESP 19; TEMP 36.8; O2SAT 100
== END 2024-08-21 09:33 | disposition home or self-care (01) ==
PROVIDERS: Emergency Provider Nurse Practitioner; PCP Physician Assistant
DX: R11.2 Nausea with vomiting, unspecified (principal)
CPT/HCPCS: 81025; 99213; G0381

== ENCOUNTER 2024-09-14 09:09 | Emergency (ER) | payer OTHER, SELFPAY ==
[2024-09-14 09:10] VITALS: BP 115/61; PULSE 101; RESP 20; TEMP 37.1; O2SAT 100; BMI 32.1
--- NOTE | 2024-09-14 09:14 | HMH.EDGENADL ---
Discharge Plan Disposition Patient Disposition: Home, Self-Care Condition: Good Prescriptions Prescriptions: New cefdinir 300 mg capsule 300 mg PO BID 10 Days Qty: 20 0RF dicyclomine 20 mg tablet 20 mg PO BID PRN (Reason: Abdominal Discomfort) Qty: 14 0RF ondansetron 4 mg tablet,disintegrating 4 mg PO Q8H PRN (Reason: nausea and vomiting) 5 Days Qty: 10 0RF ketorolac 10 mg tablet 10 mg PO Q8H PRN (Reason: pain) 5 Days Qty: 14 0RF omeprazole 20 mg capsule,delayed release(DR/EC) 20 mg PO DAILY 14 Days Qty: 14 0RF No Action Carmencita 14 mcg/24 hr (3 yrs) 13.5 mg intrauterine device 1 device intrauterine ONCE miconazole nitrate [Monistat 7] 2 % cream 1 appful vaginal HS 7 Days Qty: 45 0RF aripiprazole 5 mg tablet 5 mg PO DAILY desvenlafaxine succinate 50 mg tablet extended release 24 hr 50 mg PO DAILY Referrals Follow up/Referrals: Kaity Carlson PA [Primary Care Provider] - See instructions Activity Restrictions/Add. Instructions Additional Instructions/Restrictions: I have prescribed a course of antibiotics given that you are having pain with urination. I have also prescribed a course of pain medication nausea medication and medications to help with any stomach discomfort as well as to decrease any risk of stomach irritation from the pain medication called Toradol or ketorolac. Please follow-up with Dr. Beebe. Please return with any new or worsening symptoms Clinical Impressions Clinical Impression: Pelvic pain Stand Alone Forms Stand Alone Forms: Work/School Release Instructions Patient Instructions: DI for Acute Abdominal Pain Print Language Print Language: Turkmen Discharge ED Provider: Jayant Gray Adult HPI General Chief complaint: Abdominal Pain Stated complaint: stomach pain Time Seen by Provider: 09/14/24 09:13 History of Present Illness HPI narrative: The patient presents with a chief complaint of abdominal pain and discomfort, which started a month ago. She reports that the pain is located in the lower abdomen and has been constant, worsening over time. She also mentions that it hurts to sit down and has recently started to hurt when breathing. The patient has a history of an IUD placement six months ago. She reports that her IUD string is no longer visible, as confirmed by her OB two days ago. She has had a previous IUD that ended up in a similar situation, which was removed and replaced with the current one. Follow-up appointments after the current IUD placement, including a scan, showed the strings were visible and the IUD was in the correct position. Additionally, the patient has been experiencing a yeast infection for the past month. She started treatment for the yeast infection yesterday. The patient denies any fever, chills, nausea, vomiting, or pain with urination. She has not had any abdominal surgeries in the past. The patient initially attributed her symptoms to starting a new job. She reports that her whole stomach hurts, particularly in the lower abdominal area. The pain is worse on the right side. The patient had a urinalysis done at her recent OB appointment. Please note that above description of symptoms, in this electronic medical record under categorization of recalled from ER triage doctor by RN are reflective of an initial nursing assessment, however, is not reflective of my full history and physical exam that was personally taken and clarified. Consequentially, this preceding description of symptoms, which may include the patient's categorized chief complaint in the EMR, do not reflect my personal clinical impression, and the ultimate description of history of present illness and patient stated complaints should be deferred to this section of the note. Unless stated otherwise or congruent with this section of the note, additional signs, symptoms, or incongruence should be interpreted as inaccurate with my clinical impression. Related Data Home Medications ?Medication ?Instructions ?Recorded ?Confirmed aripiprazole 5 mg tablet 5 mg PO DAILY 08/21/24 09/12/24 desvenlafaxine succinate 50 mg 50 mg PO DAILY 08/21/24 09/12/24 tablet,extended release 24 hr levonorgestrel 14 mcg/24 hr (up to 1 device intrauterine ONCE 09/12/24 09/12/24 3 yrs) 13.5 mg intrauterine device (Carmencita) Previous Rx's ?Medication ?Instructions ?Recorded miconazole nitrate 2 % vaginal 1 appful vaginal HS 7 days #45 09/12/24 cream (Monistat 7) grams cefdinir 300 mg capsule 300 mg PO BID 10 days #20 caps 09/14/24 dicyclomine 20 mg tablet 20 mg PO BID PRN Abdominal 09/14/24 Discomfort #14 tabs ketorolac 10 mg tablet 10 mg PO Q8H PRN pain 5 days #14 09/14/24 tabs omeprazole 20 mg capsule,delayed 20 mg PO DAILY 14 days #14 caps 09/14/24 release ondansetron 4 mg disintegrating 4 mg PO Q8H PRN nausea and 09/14/24 tablet vomiting 5 days #10 tabs Allergies Allergy/AdvReac Type Severity Reaction Status Date / Time No Known Allergies Allergy Verified 09/12/24 13:25 [facility] Disclaimer: The information contained in this section may have been updated after the patient was seen, as this information can be updated by other users. Medical History Recurrent streptococcal pharyngitis Depression Anxiety Surgical History H/O wisdom tooth extraction Family History Other Substance abuse Social History Smoking Status: Current every day smoker second hand exposure: No alcohol intake: never substance use type: denies use current occupational status: other Travel in the last 8 weeks: None housing: house number of children: 0 Other Medical History Have you received the Flu Vaccine for this season: No Have you received the Pneumonia Vaccine: No ROS Obtained: Yes other As per HPI Physical Exam General General appearance: alert and in no apparent distress Head Head exam: atraumatic and normocephalic Eye Eye exam: Present normal appearance Neck Neck exam: Present normal inspection Chest Chest inspection: Present normal inspection and symmetric chest wall rise Respiratory Respiratory exam: Present normal lung sounds bilaterally; Absent respiratory distress Cardiovascular Cardiovascular exam: Present regular rate and normal rhythm Abdominal Exam Abdominal exam: Present soft Comment: Suprapubic abdominal tenderness to palpation Neurological Exam Neurological exam: Present alert and oriented X3 Psychiatric Psychiatric exam: Present normal affect and normal mood Skin Skin exam: Present warm and dry Medical Decision Making Medical Records Medical records reviewed: Yes I reviewed the patient's medical records. Screening: Per USPSTF and CDC recommendations, given the prevalence of disease in our region, it is our hospital?s policy to screen for HIV and viral Hepatitis for all patients aged 18 and over and those with ongoing risk factors. Regis Inquiry Pt receiving controlled substance: No Vital Signs: 09/14/24 09:10 09/14/24 11:06 09/14/24 11:30 Temperature 98.7 F Temperature Source Oral Pulse Rate 75 71 Pulse Rate [Right Radial] 101 H Respiratory Rate 20 Blood Pressure 157/82 H 182/90 H Blood Pressure [Right Arm] 115/61 Blood Pressure Mean 90 120 Blood Pressure Mean [Right Arm] 79 02 Sat by Pulse Oximetry 100 100 99 Oxygen Delivery Method Room Air 09/14/24 12:01 09/14/24 12:27 Temperature 98.7 F Temperature Source Pulse Rate 80 80 Pulse Rate [Right Radial] Respiratory Rate 18 Blood Pressure 159/51 H 159/51 H Blood Pressure [Right Arm] Blood Pressure Mean Blood Pressure Mean [Right Arm] 02 Sat by Pulse Oximetry 100 Oxygen Delivery Method Room Air Room Air Lab Data Lab Results 09/14/24 09:14: Urine Color Yellow, Urine Appearance Cloudy, Urine pH 6.5, Ur Specific [place] 1.020, Urine Protein Negative, Urine Glucose (UA) Negative, Urine Ketones Negative, Urine Blood Negative, Urine Nitrate Negative, Urine Bilirubin Negative, Urine Urobilinogen 0.2, Ur Leukocyte Esterase Negative, Urine RBC None, Urine WBC None, Ur Squamous Epith Cells 5-10, Urine Bacteria Trace 09/14/24 09:28: WBC 4.7, RBC 4.56, Hgb 14.4, Hct 40.3, MCV 88.4, MCH 31.6 H, MCHC 35.8 H, RDW 14.0, Plt Count 237, MPV 8.0, Neut % (Auto) 63.0, Lymph % (Auto) 29.2, [place] % (Auto) 4.4, Eos % (Auto) 2.7, Baso % (Auto) 0.7, Neut # (Auto) 3.0, Lymph # (Auto) 1.4, [place] # (Auto) 0.2, Eos # (Auto) 0.1, Baso # (Auto) 0.0, Sodium 138, Potassium 3.9, Chloride 103, Carbon Dioxide 25, Anion Gap 13.9, BUN 11, Creatinine 0.60, Estimated Creat Clear 213, Estimated GFR 127, Est GFR ( Amer) 154, Glucose 88, Calcium 9.0, Total Bilirubin 0.6, AST 21, ALT 15, Alkaline Phosphatase 58, C-Reactive Protein 0.6, Total Protein 7.5, Albumin 4.7, Globulin 2.8, Albumin/Globulin Ratio 1.7, Serum HCG, Qual Negative, Hepatitis C Antibody Non reactive 09/14/24 09:45: Blood Type A Positive 09/14/24 09:28 09/14/24 09:28 Orders (Tests/Meds): ED MEDICATIONS Discontinued Medications Generic Name Dose Route Start Last Admin Trade Name Tray PRN Reason Stop Dose Admin Iopamidol 75 ml 09/14/24 10:59 09/14/24 11:00 Iopamidol-370 (76%);100ml Bottle IV 09/14/24 11:00 75 ml ONCE ONE Administration Ketorolac Tromethamine 15 mg 09/14/24 10:39 09/14/24 10:47 Ketorolac 30mg/Ml Vial IV 09/14/24 10:40 15 mg ONCE ONE Administration Methocarbamol 1,000 mg 09/14/24 10:39 09/14/24 10:47 Methocarbamol 500mg Tablet PO 09/14/24 10:40 1,000 mg ONCE ONE Administration Sodium Chloride 10 ml 09/14/24 10:59 09/14/24 11:00 Sodium Chloride 0.9% 10ml Syr (Rad Only) IV 09/14/24 11:00 10 ml ONCE ONE Administration ORDERS Category Date Time Status ABO/RH Type Stat BBK 09/14/24 09:[address] abdomen pelvis w con Stat Cat Scan 09/14/24 10:43 Completed US transvaginal Stat Exams 09/14/24 09:39 Completed CBC w/Auto Diff [Complete Blood Count Auto Diff] Stat Lab 09/14/24 09:28 Completed CMP [Comprehensive Metabolic Panel] Stat Lab 09/14/24 09:28 Completed CRP [C-Reactive Protein] Stat Lab 09/14/24 09:28 Completed HCG Qualitative, Serum Stat Lab 09/14/24 09:28 Completed Hep C Ab with Reflex to RNA Stat Lab 09/14/24 09:28 Completed Urinalysis and Microscopic Stat Lab 09/14/24 09:14 Completed Urine Culture Stat Micro 09/14/24 09:28 Completed Medical Decision Narrative: Patient with history and exam per above presenting for evaluation of abdominal pain Diagnoses considered include IUD displacement, appendicitis, ovarian cyst, ovarian torsion, among others ED workup and treatment included: ED MEDICATIONS Discontinued Medications Generic Name Dose Route Start Last Admin Trade Name Tray PRN Reason Stop Dose Admin Iopamidol 75 ml 09/14/24 10:59 09/14/24 11:00 Iopamidol-370 (76%);100ml Bottle IV 09/14/24 11:00 75 ml ONCE ONE Administration Ketorolac Tromethamine 15 mg 09/14/24 10:39 09/14/24 10:47 Ketorolac 30mg/Ml Vial IV 09/14/24 10:40 15 mg ONCE ONE Administration Methocarbamol 1,000 mg 09/14/24 10:39 09/14/24 10:47 Methocarbamol 500mg Tablet PO 09/14/24 10:40 1,000 mg ONCE ONE Administration Sodium Chloride 10 ml 09/14/24 10:59 09/14/24 11:00 Sodium Chloride 0.9% 10ml Syr (Rad Only) IV 09/14/24 11:00 10 ml ONCE ONE Administration ORDERS Category Date Time Status ABO/RH Type Stat BBK 09/14/24 09:[address] abdomen pelvis w con Stat Cat Scan 09/14/24 10:43 Completed US transvaginal Stat Exams 09/14/24 09:39 Completed CBC w/Auto Diff [Complete Blood Count Auto Diff] Stat Lab 09/14/24 09:28 Completed CMP [Comprehensive Metabolic Panel] Stat Lab 09/14/24 09:28 Completed CRP [C-Reactive Protein] Stat Lab 09/14/24 09:28 Completed HCG Qualitative, Serum Stat Lab 09/14/24 09:28 Completed Hep C Ab with Reflex to RNA Stat Lab 09/14/24 09:28 Completed Urinalysis and Microscopic Stat Lab 09/14/24 09:14 Completed Urine Culture Stat Micro 09/14/24 09:28 Completed Labs were independently interpreted by me, significant for no acute findings Imaging was independently visualized and interpreted by me, significant for no acute findings Please refer to radiology report for full details. Case was discussed with HAND FLESHER physician on-call, agrees with workup, patient is stable for discharge at this time I discussed my clinical impression with patient and answered all questions. At this time, the evidence for any other entities in the differential is insufficient to warrant any further testing or ED observation. This was explained to the patient. The patient was advised that persistent or worsening symptoms require further evaluation. Critical Care Critical Care Time Critical Care Time: No
[2024-09-14 09:36] LABS: Microscopic, Urine URINE MICROSCOPIC (MICROSCOPIC)
--- NOTE | 2024-09-14 09:39 | US_ITS ---
PROCEDURE INFORMATION: Exam: US Pelvis, Transvaginal, Non-Obstetric Exam date and time: 09/14/2024 9:56 AM Age: 19 years old Clinical indication: Pelvic pain; Additional info: Concern for iud displacement TECHNIQUE: Imaging protocol: Real-time transvaginal pelvic (non-obstetric) ultrasound with image documentation. Transvaginal imaging was used for better evaluation of the endometrium, adnexa, and/or cervix. COMPARISON: No relevant prior studies available. FINDINGS: Uterus: The uterus measures 7.9 x 4.1 x 5.4 cm. Normal size, contour and echotexture. IUD appears to be in appropriate position. No mass. The endometrial echo complex measures 0.6 cm. Right ovary/adnexa: The right ovary measures 3.0 x 2.0 x 2.8 cm. Arterial and venous flow are documented. Right corpus luteum. Left ovary/adnexa: The left ovary measures 1.1 x 2.4 x 1.7 cm. Arterial and venous flow are documented. No mass. Urinary bladder: Normal as imaged. Intraperitoneal space: Trace free fluid in the pelvis. IMPRESSION: Unremarkable pelvic ultrasound. IUD appears to be in appropriate position.
[2024-09-14 09:40] LABS: Basophils % 0.7 % (0.1-2.0); Eosinophils # 0.1 K/mm3 (0.0-0.4); Eosinophils % 2.7 % (0.1-12.0); Hematocrit 40.3 % (37.0-47.0); Hemoglobin 14.4 g/dL (12.2-16.2); Lymphocytes # 1.4 K/mm3 (0.7-4.5); Lymphocytes % 29.2 % (10-50); Mean Corpuscular HGB Conc 35.8 g/dL (31.8-35.4); Mean Corpuscular Hemoglobin 31.6 pg (27.0-31.2); Mean Corpuscular Volume 88.4 fl (81-99); Monocytes # 0.2 K/mm3 (0.1-1.0); Monocytes % 4.4 % (1.7-9.3); Platelet Count 237 K/mm3 (142-424); Red Blood Count 4.56 M/mm3 (4.20-5.40); White Blood Count 4.7 K/mm3 (4.5-13.0)
--- NOTE | 2024-09-14 09:40 | PC.NURSE ---
spoke with radiology regarding ultrasound
[2024-09-14 09:45] LABS: Appearance,Urine CLOUDY (Clear); Bilirubin,Urine Negative (Negative); Blood, Urine Negative (Negative); Color,Urine YELLOW (Yellow); Glucose,Urine (UA) Negative (Negative); Ketones,Urine Negative (Negative); Leukocyte Esterase,Urine Negative (Negative); Nitrate,Urine Negative (Negative); PH,Urine 6.5 (5.0-8.5); Protein,Urine Negative (Negative); Urobilinogen,Urine 0.2 EU/dl (0.2)
[2024-09-14 10:01] LABS: Alanine Aminotransferase 15 U/L (12-78); Albumin Level 4.7 g/dl (3.5-5.0); Albumin/Globulin Ratio 1.7 (1.1-1.8); Alkaline Phosphatase 58 U/L (38-126); Anion Gap 13.9 mEq/L (5-15); Aspartate Amino Transferase 21 U/L (14-36); Bilirubin,Total 0.6 mg/dl (0.2-1.3); Blood Urea Nitrogen 11 mg/dl (7-17); Carbon Dioxide 25 mmol/L (22.0-30.0); Chloride 103 mmol/L (98-107); Creatinine Clearance Estimated 213 mL/min (50-200); Estimated Glomerular Filt Rate 127 ml/min (>60); GFR (African American) 154 ML/MIN (>60); Globulin 2.8 g/dL (1.3-3.2); Glucose 88 mg/dl (74-100); Potassium 3.9 mmoL/L (3.5-5.1); Sodium 138 mmol/L (136-145); Total Protein,Serum 7.5 g/dl (6.3-8.2)
[2024-09-14 10:02] LABS: HCG Qualitative, Serum Negative (Negative)
[2024-09-14 10:06] LABS: C-Reactive Protein 0.6 mg/L (0-4)
[2024-09-14 10:19] LABS: Bacteria,Urine Trace /lpf
--- NOTE | 2024-09-14 10:43 | CT_ITS ---
PROCEDURE INFORMATION: Exam: CT Abdomen And Pelvis With Contrast Exam date and time: 09/14/2024 10:58 AM Age: 19 years old Clinical indication: Abdominal pain; Additional info: Rlq abdominal pain TECHNIQUE: Imaging protocol: Computed tomography of the abdomen and pelvis with contrast. Radiation optimization: All CT scans at this facility use at least one of these dose optimization techniques: automated exposure control; mA and/or kV adjustment per patient size (includes targeted exams where dose is matched to clinical indication); or iterative reconstruction. Contrast material: ISOVUE; Contrast volume: 75 ml; Contrast route: IV; COMPARISON: US TRANSVAGINAL 09/14/2024 9:56 AM FINDINGS: Liver: Normal. No mass. Gallbladder and biliary ducts: Normal. No calcified stones. No ductal dilation. Pancreas: Normal. No ductal dilation. Spleen: Normal. No splenomegaly. Adrenal glands: Normal. No mass. Kidneys and ureters: Normal. No hydronephrosis. Stomach and bowel: Unremarkable. No obstruction. No mucosal thickening. Appendix: No evidence of appendicitis. Intraperitoneal space: Trace free fluid in the pelvis. Vasculature: Unremarkable. No abdominal aortic aneurysm. Lymph nodes: Unremarkable. No enlarged lymph nodes. Urinary bladder: Unremarkable as visualized. Reproductive: IUD is in place. Right corpus luteum. Bones/joints: Unremarkable. No acute fracture. Soft tissues: Unremarkable. IMPRESSION: No acute findings.
[2024-09-14] MEDS: METHOCARBAMOL 500MG TABLET 1000 MG PO (10:47)
[2024-09-14] MEDS: KETOROLAC 30MG/ML VIAL 15 MG IV (10:47)
[2024-09-14] MEDS: SODIUM CHLORIDE 0.9% 10ML SYR (RAD ONLY) 10 ML IV (11:00)
[2024-09-14] MEDS: IOPAMIDOL-370 (76%);100ML BOTTLE 75 ML IV (11:00)
[2024-09-14 11:06] VITALS: BP 157/82; PULSE 75; O2SAT 100
[2024-09-14 11:30] VITALS: BP 182/90; PULSE 71; O2SAT 99
[2024-09-14 12:01] VITALS: BP 159/51; PULSE 80; O2SAT 100
[2024-09-14 12:27] VITALS: BP 159/51; PULSE 80; RESP 18; TEMP 37.1; O2SAT 100
[2024-09-15 09:14] LABS: HCV Ab Non Reactive (Non Reactive)
== END 2024-09-14 12:31 | disposition home or self-care (01) ==
PROVIDERS: Emergency Provider Emergency Medicine; PCP Physician Assistant
DX: R10.2 Pelvic and perineal pain (principal)
CPT/HCPCS: 74177; 76830; 80053; 81001; 84703; 85025; 86140; 86803; 86900; 86901; 87086; 96374; 99285; J1885; Q9967

== ENCOUNTER 2024-10-10 10:09 | Emergency (ER) | payer SELFPAY ==
--- NOTE | 2024-10-10 10:10 | XR_ITS ---
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 There is no fracture or dislocation. The joint spaces appear normal. No soft tissue abnormality is identified. IMPRESSION: No acute process. Reviewed, Interpreted and Dictated by Geronimo Hogue III, MD Transcribed by Fidelia Shanks Authenticated and [facility]
[2024-10-10 11:15] VITALS: BP 129/66; PULSE 81; RESP 19; TEMP 36.8; O2SAT 100; BMI 33.6
[2024-10-10] MEDS: TET/DIPHTH/PERT-ADULT 0.5ML SYRINGE 0.5 ML IM (11:30)
--- NOTE | 2024-10-10 11:33 | EXP.UTC ---
Discharge Plan Disposition Patient Disposition: Home, Self-Care Condition: Good Prescriptions Prescriptions: New bacitracin 500 unit/gram ointment 1 applic topical TID 10 Days Qty: 30 0RF Rx Instructions: apply to burn on finger as directed No Action aripiprazole 5 mg tablet 5 mg PO DAILY desvenlafaxine succinate 50 mg tablet extended release 24 hr 50 mg PO DAILY Referrals Follow up/Referrals: Kaity Carlson PA [Primary Care Provider] - See instructions Activity Restrictions/Add. Instructions Additional Instructions/Restrictions: Keep wound area clean and dry Apply topical medication to wound as directed and keep covered at work and open at home Follow up with your Family Doctor if any signs of infection Straight to ER if any life threatening symptoms Clinical Impressions Clinical Impression: Finger injury Qualifiers: Encounter type: initial encounter Laterality: left Qualified Code(s): S69.92XA - Unspecified injury of left wrist, hand and finger(s), initial encounter Instructions Patient Instructions: Bacitracin Topical Print Language Print Language: Azeri Discharge ED Provider: Rocío Fuentes [facility] [place] General Stated complaint: L thumb injury ao Mode of Arrival: Ambulatory Source of Information: Patient Limitations: No Limitations Time Seen by Provider: 10/10/24 11:33 Description of Symptoms (Recalled from Triage Doc. by RN): PATIENT PATIENT BURN TO LEFT THUMB FROM A GRINDING BLADE HEENT Symptoms (Recalled from RN notes): No Resp Symptoms (Recalled from RN notes): No Skin Symptoms (Recalled from RN notes): Yes MS Symptoms (Recalled from RN notes): No Functional Status (Recalled from RN notes): WNL History of Present Illness Provider Complaint: Patient states that she was changing the blade on the hull grinder at work and it got her on her left thumb causing a burn to her thumb States that work made her come in and get checked States that she can move and bend finger without complication Related Data Home Medications ?Medication ?Instructions ?Recorded ?Confirmed aripiprazole 5 mg tablet 5 mg PO DAILY 10/10/24 10/10/24 desvenlafaxine succinate 50 mg 50 mg PO DAILY 10/10/24 10/10/24 tablet,extended release 24 hr Previous Rx's ?Medication ?Instructions ?Recorded bacitracin 500 unit/gram topical 1 applic topical TID 10 days #30 10/10/24 ointment grams Allergies Allergy/AdvReac Type Severity Reaction Status Date / Time No Known Allergies Allergy Verified 09/12/24 13:25 Worker's Comp Is this a Worker's Comp case?: No [facility] Disclaimer: The information contained in this section may have been updated after the patient was seen, as this information can be updated by other users. Medical History Recurrent streptococcal pharyngitis Depression Anxiety Surgical History H/O wisdom tooth extraction Family History (Reviewed 09/12/24 @ 13: by DIEGO Miranda) Other Substance abuse Social History (Reviewed 09/12/24 @ 13: by DIEGO Miranda) Smoking Status: Current every day smoker second hand exposure: No alcohol intake: never substance use type: denies use current occupational status: other Travel in the last 8 weeks: None housing: house number of children: 0 ROS Obtained: Yes All systems reviewed & no additional complaints except as documented and Yes Systems reviewed as appropriate & no additional complaints except as documented Constitutional Constitutional: Reports system reviewed and no additional complaints, except as documented and Reports as per HPI ENT Ears, Nose, Mouth, and Throat: Reports system reviewed and no additional complaints, except as documented and Reports as per HPI Cardiovascular Cardiovascular: Reports system reviewed and no additional complaints, except as documented and Reports as per HPI Respiratory Respiratory: Reports system reviewed and no additional complaints, except as documented and Reports as per HPI Gastrointestinal Gastrointestingal: Reports system reviewed and no additional complaints, except as documented and as per HPI Musculoskeletal Musculoskeletal: Reports system reviewed and no additional complaints, except as documented and Reports as per HPI Comments: burn/laceration to left thumb base Physical Exam General General appearance: alert and in no apparent distress Chest Chest inspection: Present normal inspection and symmetric chest wall rise Respiratory Respiratory exam: Present normal lung sounds bilaterally; Absent respiratory distress or wheezes Cardiovascular Cardiovascular exam: Present regular rate, normal rhythm and normal heart sounds Expanded Upper Extremity Exam Left: Hand exam: Present other Hand L/R back image: 1. appears like burn to base of left thumb, reports able to move it easily Neurological Exam Neurological exam: Present alert, oriented X3 and normal gait Medical Decision Making Medical Records Screening: Per USPSTF and CDC recommendations, given the prevalence of disease in our region, it is our hospital?s policy to screen for HIV and viral Hepatitis for all patients aged 18 and over and those with ongoing risk factors. Regis Inquiry Pt receiving controlled substance: No Regis was queried for this patient: No Vital Signs: 10/10/24 11:15 Temperature 98.2 F Temperature Source Oral Pulse Rate [Left Brachial] 81 Respiratory Rate 19 Blood Pressure [Left Arm] 129/66 Blood Pressure Mean [Left Arm] 87 Blood Pressure Source [Left Arm] Automatic Cuff Blood Pressure Position [Left Arm] Sitting 02 Sat by Pulse Oximetry 100 Oxygen Delivery Method Room Air Orders (Tests/Meds): ORDERS Category Date Time Status XR hand LT min 3V Stat Exams 10/10/24 10:10 Taken Radiology Data #1: Image(s): Hand Image Reviewed: Yes I have reviewed radiologist's interpretation no acute process
[2024-10-10 12:50] VITALS: BP 129/66; PULSE 81; RESP 19; TEMP 36.8; O2SAT 100
[2024-10-10] MEDS: NEOSPORIN OINTMENT 0.9GM UDP 1 EACH TP (12:50)
--- NOTE | 2024-10-10 12:50 | PC.NURSE ---
DRY DRESSING AND ALUMINUM FINGER SPLINT APPLIED AT THIS TIME
== END 2024-10-10 12:52 | disposition home or self-care (01) ==
PROVIDERS: Emergency Provider Nurse Practitioner; PCP Physician Assistant
DX: S69.92XA Unspecified injury of left wrist, hand and finger(s), initial encounter (principal); M79.645 Pain in left finger(s); Z23 Encounter for immunization; X58.XXXA Exposure to other specified factors, initial encounter; Y93.89 Activity, other specified; Y92.9 Unspecified place or not applicable
CPT/HCPCS: 73130; 90471; 90715; 99212; G0381

== ENCOUNTER 2025-02-15 13:13 | Outpatient (CLI) | payer OTHER, SELFPAY | END 2025-02-16 23:59 | disposition home or self-care (01) | LOC: LAB.DROPOF 05-16 10:40 | PROVIDERS: Visit Provider Nurse Practitioner | DX: R30.0 Dysuria (principal) | CPT/HCPCS: 87086 ==

== ENCOUNTER 2025-02-15 20:03 | Outpatient (CLI) | payer OTHER, SELFPAY | END 2025-02-15 23:59 | disposition home or self-care (01) | LOC: LAB.DROPOF 20:04 | PROVIDERS: PCP Nurse Practitioner; Visit Provider Nurse Practitioner | DX: N39.0 Urinary tract infection, site not specified (principal); R10.2 Pelvic and perineal pain ==

== ENCOUNTER 2025-02-18 14:06 | Emergency (ER) | payer OTHER, SELFPAY ==
--- NOTE | 2025-02-18 14:09 | ED_ITS ---
<Statement entered by Kylah Manuel MD - 02/21/25 22:37> I was consulted by the BHUMI, and we discussed the complexity of the problems being addressed. I approved the treatment and management plan for this patient's care in the emergency department, thus performing a substantive portion of the medical decision making. Kylah Manuel MD, FIORELLA, FACEP Discharge Plan Disposition Patient Disposition: Home, Self-Care Condition: Good Prescriptions Prescriptions: No Action phenazopyridine [Pyridium] 200 mg tablet 200 mg PO Q8H 2 Days Qty: 6 0RF cephalexin 500 mg capsule 500 mg PO BID 5 Days Qty: 10 0RF trazodone 50 mg tablet See Rx Instructions PO DAILY Qty: 60 1RF Rx Instructions: 1-2 tabs qhs prn sleep desvenlafaxine succinate [Pristiq] 100 mg tablet extended release 24 hr 100 mg PO DAILY Qty: 30 2RF Referrals Follow up/Referrals: Shahid Jimenez II, MD [Staff Physician] - See instructions (Constipation) Provider,MD Shon [Primary Care Provider] - See instructions Activity Restrictions/Add. Instructions Additional Instructions/Restrictions: As we discussed please follow the disimpaction sheet. I have referred you to gastroenterology. Please call to make your appointment in the morning. If you have any continued new or worsening signs or symptoms follow-up with your PCP return to the ER as needed. Clinical Impressions Clinical Impression: Constipation Qualifiers: Constipation type: unspecified constipation type Qualified Code(s): K59.00 - Constipation, unspecified Stand Alone Forms Stand Alone Forms: Work/School Release Instructions Patient Instructions: DI for Constipation Print Language Print Language: Tajik Discharge ED Provider: Jose G Carpenter Adult HPI General Chief complaint: Abdominal Pain Stated complaint: UTI, severe abd. pain Time Seen by Provider: 02/18/25 14:09 History of Present Illness HPI narrative: Patient presents for evaluation of right flank pain and right-sided abdominal pain. Patient states that she has had right sided abdominal pain since Tuesday. She went to the [facility] and ultimately was prescribed Keflex and Pyridium however it is not helped her symptoms. Patient states the pain is located in her right flank right upper quadrant and some in her right lower quadrant. She denies actually chest pain shortness of breath fever chills hemoptysis hematochezia melena hematemesis hematuria vomiting or diarrhea but does endorse nausea. Patient is G1, P1 Ab0. She denies dysuria or vaginal discharge. Related Data Previous Rx's ?Medication ?Instructions ?Recorded desvenlafaxine succinate 100 mg 100 mg PO DAILY #30 tabs 01/25/25 tablet,extended release 24 hr (Pristiq) trazodone 50 mg tablet See Rx Instructions PO DAILY #60 01/25/25 tabs cephalexin 500 mg capsule 500 mg PO BID 5 days #10 caps 02/15/25 phenazopyridine 200 mg tablet 200 mg PO Q8H 2 days #6 tabs 02/15/25 (Pyridium) Allergies Allergy/AdvReac Type Severity Reaction Status Date / Time No Known Allergies Allergy Verified 02/18/25 14:21 [facility] Disclaimer: The information contained in this section may have been updated after the patient was seen, as this information can be updated by other users. Medical History (Updated 02/18/25 @ 16:38 by BRYN Tierney) UTI symptoms Recurrent streptococcal pharyngitis Depression Anxiety Surgical History H/O wisdom tooth extraction Family History Other Substance abuse Social History Smoking Status: Never smoker second hand exposure: No alcohol intake: never substance use type: denies use current occupational status: other Travel in the last 8 weeks: None housing: house number of children: 0 Have you lived/traveled outside US in past 30 days?: No Contact w/someone who lives/traveled outside US past 30 days?: No Exposure to someone with infectious disease in past 14 days?: No Do you have a fever (greater than 100.4 F or 38 C)?: No Have you tested positive for COVID-19: No Exposed to someone with COVID-19 in past 14 days?: No Do you have a sore throat?: No Do you have a cough?: No Do you have any weakness?: No Do you have any diarrhea?: No Are you experiencing any unusual bleeding?: No Do you have any muscle aches/pain?: No Do you have any abdominal pain?: Yes Are you experiencing loss of taste or smell?: No Other Medical History Have you received the Flu Vaccine for this season: No Have you received the Pneumonia Vaccine: No ROS Obtained: Yes Systems reviewed as appropriate & no additional complaints except as documented Physical Exam General General appearance: alert and in no apparent distress Respiratory Respiratory exam: Present normal lung sounds bilaterally Cardiovascular Cardiovascular exam: Present regular rate Neurological Exam Neurological exam: Present alert and oriented X3 Medical Decision Making Medical Records Medical records reviewed: Yes I reviewed the patient's medical records. Screening: Per USPSTF and CDC recommendations, given the prevalence of disease in our region, it is our hospital?s policy to screen for HIV and viral Hepatitis for all patients aged 18 and over and those with ongoing risk factors. Regis Inquiry Pt receiving controlled substance: No Vital Signs: 02/18/25 14:16 Temperature 99.5 F Temperature Source Oral Pulse Rate [Left Radial] 82 Respiratory Rate 16 Blood Pressure [Right Arm] 129/52 L Blood Pressure Mean [Right Arm] 77 Blood Pressure Source [Right Arm] Automatic Cuff Blood Pressure Position [Right Arm] Supine 02 Sat by Pulse Oximetry 98 Oxygen Delivery Method Room Air Lab Data Lab results reviewed: Yes I reviewed the patient's lab results. Lab Results 02/18/25 14:09: Urine Color Yellow, Urine Appearance Clear, Urine pH 8.0, Ur Specific [place] 1.020, Urine Protein Trace, Urine Glucose (UA) Negative, Urine Ketones Negative, Urine Blood Trace-i, Urine Nitrate Negative, Urine Bilirubin Negative, Urine Urobilinogen 0.2, Ur Leukocyte Esterase Negative, Urine RBC None, Urine WBC None, Ur Squamous Epith Cells 10-20, Urine Bacteria Trace, Urine HCG, Qual Negative 02/18/25 14:32: WBC 4.4 L, RBC 4.30, Hgb 13.5, Hct 39.1, MCV 90.9, MCH 31.4 H, MCHC 34.5, RDW 13.0, Plt Count 229, MPV 10.6 H, Neut % (Auto) 55.3, Lymph % (Auto) 34.6, [place] % (Auto) 6.4, Eos % (Auto) 3.0, Baso % (Auto) 0.5, Neut # (Auto) 2.4, Lymph # (Auto) 1.5, [place] # (Auto) 0.3, Eos # (Auto) 0.1, Baso # (Auto) 0.0, Sodium 140, Potassium 3.8, Chloride 105, Carbon Dioxide 25, Anion Gap 13.8, BUN 10, Creatinine 0.60, Estimated Creat Clear 197, Estimated GFR 127, Est GFR ( Amer) 154, Glucose 89, Calcium 8.9, Total Bilirubin 0.8, AST 21, ALT 17, Alkaline Phosphatase 59, C-Reactive Protein < 0.3, Total Protein 7.4, Albumin 4.3, Globulin 3.1, Albumin/Globulin Ratio 1.4, Procalcitonin < 0.030 02/18/25 14:32 02/18/25 14:32 Orders (Tests/Meds): ED MEDICATIONS Generic Name Dose Route Start Last Admin Trade Name Freq PRN Reason Stop Dose Admin Sodium Chloride 10 ml 02/18/25 14:57 02/18/25 14:58 Sodium Chloride 0.9% 10ml Syr (Rad Only) IV 03/20/25 14:56 10 ml NEEDED PRN Administration Maintain IV Site Discontinued Medications Generic Name Dose Route Start Last Admin Trade Name Freq PRN Reason Stop Dose Admin Acetaminophen 1,000 mg 02/18/25 14:23 02/18/25 14:43 Acetaminophen 1,000mg/100ml Vial IV 02/18/25 14:24 1,000 mg ONCE ONE Administration Sodium Chloride 1,000 mls @ 999 mls/hr 02/18/25 14:23 02/18/25 14:43 Sod Chlor 0.9% 1000ml Bag IV 02/18/25 15:23 999 mls/hr .Q1H1M ONE Administration Iopamidol 75 ml 02/18/25 14:57 02/18/25 14:57 Iopamidol-370 (76%);100ml Bottle IV 02/18/25 14:58 75 ml ONCE ONE Administration Ketorolac Tromethamine 15 mg 02/18/25 14:23 02/18/25 14:43 Ketorolac 30mg/Ml Vial IV 02/18/25 14:24 15 mg ONCE ONE Administration Ondansetron HCl 4 mg 02/18/25 14:23 02/18/25 14:43 Ondansetron 4mg/2ml Vial IV 02/18/25 14:24 4 mg ONCE ONE Administration ORDERS Category Date Time Status CT abdomen pelvis w con Stat Cat Scan 02/18/25 14:23 Completed CBC w/Auto Diff [Complete Blood Count Auto Diff] Stat Lab 02/18/25 14:32 Completed CMP [Comprehensive Metabolic Panel] Stat Lab 02/18/25 14:32 Completed CRP [C-Reactive Protein] Stat Lab 02/18/25 14:32 Completed Procalcitonin Stat Lab 02/18/25 14:32 Completed UA [Urinalysis and Microscopic] Stat Lab 02/18/25 14:09 Completed Urine , HCG Qual. Stat Lab 02/18/25 14:09 Completed Medical Decision Narrative: In summary patient is a 19-year-old female who presents to the emergency department for evaluation of right flank and right sided abdominal pain. Patient is hemodynamically stable with a blood pressure 129/52 pulse 82 normal sinus rhythm bedside monitor breathing 16 times minute satting at 90% on room air upon arrival, temperature 99.5. Physical exam is remarkable for tenderness to palpation in the right upper and lower quadrants without rebound or guarding or rigidity. Bowel sounds normal active. Patient has CVA tenderness to percussion on the right not on the left. Differential diagnosis includes pyelonephritis versus kidney stone versus cholecystitis versus constipation versus colitis etc. Initial workup will be conducted with hematologic labs urinalysis CT scan abdomen pelvis. Initial interventions include crystalloid bolus Toradol Tylenol Zofran. Initial workup reviewed by me and her hematologic labs are nonactionable clued a normal white count, urinalysis is bland with no evidence of infection in my informal interpretation of CT scan abdomen pelvis shows no acute intra-abdominal process however she does have significant stool burden in the ascending colon but no evidence of colonic distention or bowel wall thickening. Upon repeat evaluation patient is tolerating oral intake and reports moderate improvement after initial intervention. Given this I have given the patient a disimpaction sheet instructed to start a bowel regimen and have referred the patient to gastroenterology for further evaluation of her constipation issues. Critical Care Critical Care Time Critical Care Time: No
[2025-02-18 14:16] VITALS: BP 129/52; PULSE 82; RESP 16; TEMP 37.5; O2SAT 98; BMI 29.7
--- NOTE | 2025-02-18 14:23 | CT_ITS ---
FINAL REPORT TECHNIQUE: Thin section axial images are obtained through the abdomen and pelvis after intravenous contrast. Reconstruction images were obtained from the axial data. Exam was performed using dose reduction techniques. CLINICAL HISTORY: Right-sided abdominal pain, right flank pain dx with UTI last week, increased pain COMPARISON: 09/14/2024 FINDINGS: LUNG BASES: Lung bases are clear. Heart size is normal. LIVER: Homogeneous. No focal lesion. GALLBLADDER/BILIARY SYSTEM: Gallbladder is present. No gallstones. No biliary dilatation. SPLEEN: Unremarkable. PANCREAS: Unremarkable. ADRENALS: Unremarkable. KIDNEYS/URETERS/BLADDER: No hydronephrosis, renal mass, or renal stone. Unremarkable urinary bladder. GI TRACT: No small bowel obstruction or dilatation. Normal appendix. No acute colon abnormality. PELVIC ORGANS: There is an IUD in the uterus. There are normal physiologic changes to the ovaries, bilaterally. LYMPH NODES/RETROPERITONEUM/MESENTERY: No lymphadenopathy. No abdominal aortic aneurysm. ABDOMINAL WALL: The abdominal wall is intact. FREE FLUID: No ascites. BONES: No acute osseous abnormality. IMPRESSION: No acute intra-abdominal or intrapelvic abnormality. Reviewed, Interpreted and Dictated by Melisa Kelly MD Transcribed by Norah Poe Authenticated and [facility]
[2025-02-18] MEDS: 0.9 % SODIUM CHLORIDE 1000ML 1,000 ML 999 ML IV (14:43)
[2025-02-18] MEDS: ACETAMINOPHEN 1,000MG/100ML VIAL 1000 MG IV (14:43)
[2025-02-18] MEDS: KETOROLAC 30MG/ML VIAL 15 MG IV (14:43)
[2025-02-18] MEDS: ONDANSETRON 4MG/2ML VIAL 4 MG IV (14:43)
[2025-02-18 14:49] LABS: Microscopic, Urine URINE MICROSCOPIC (MICROSCOPIC)
[2025-02-18 14:50] LABS: Basophils % 0.5 % (0.1-2.0); Eosinophils # 0.1 Kmm3 (0.0-0.4); Hematocrit 39.1 % (37.0-47.0); Hemoglobin 13.5 g/dL (12.2-16.2); Lymphocytes # 1.5 K/mm3 (0.7-4.5); Lymphocytes % 34.6 % (10-50); Mean Corpuscular HGB Conc 34.5 g/dL (31.8-35.4); Mean Corpuscular Hemoglobin 31.4 pg (27.0-31.2); Mean Corpuscular Volume 90.9 fl (81-99); Mean Platelet Volume 10.6 fl (7.4-10.4); Monocytes # 0.3 K/mm3 (0.1-1.0); Monocytes % 6.4 % (1.7-9.3); Neutrophils # 2.4 K/mm3 (1.8-7.8); Neutrophils % 55.3 % (37.0-80.0); Nucleated Red Blood Cells # 0 10^3/uL; Nucleated Red Blood Cells % 0 %; Platelet Count 229 K/mm3 (142-424); Red Cell Distribution Width-SD 42.2 fL; White Blood Count 4.4 K/mm3 (4.5-13.0)
[2025-02-18 14:52] LABS: Appearance,Urine CLEAR (Clear); Bilirubin,Urine Negative (Negative); Blood, Urine TRACE-I (Negative); Color,Urine YELLOW (Yellow); Glucose,Urine (UA) Negative (Negative); Ketones,Urine Negative (Negative); Leukocyte Esterase,Urine Negative (Negative); Nitrate,Urine Negative (Negative); Protein,Urine TRACE (Negative); Urobilinogen,Urine 0.2 EU/dl (0.2)
[2025-02-18 14:53] LABS: Urine Pregnancy, HCG Qual. Negative (Negative)
[2025-02-18 14:54] LABS: Alanine Aminotransferase 17 U/L (12-78); Albumin Level 4.3 g/dl (3.5-5.0); Albumin/Globulin Ratio 1.4 (1.1-1.8); Alkaline Phosphatase 59 U/L (38-126); Anion Gap 13.8 mEq/L (5-15); Aspartate Amino Transferase 21 U/L (14-36); Bilirubin,Total 0.8 mg/dl (0.2-1.3); Blood Urea Nitrogen 10 mg/dl (7-17); Calcium 8.9 mg/dl (8.4-10.2); Carbon Dioxide 25 mmol/L (22.0-30.0); Chloride 105 mmol/L (98-107); Creatinine Clearance Estimated 197 mL/min (50-200); Estimated Glomerular Filt Rate 127 ml/min (>60); GFR (African American) 154 ML/MIN (>60); Globulin 3.1 g/dL (1.3-3.2); Glucose 89 mg/dl (74-100); Potassium 3.8 mmoL/L (3.5-5.1); Sodium 140 mmol/L (136-145); Total Protein,Serum 7.4 g/dl (6.3-8.2)
[2025-02-18] MEDS: IOPAMIDOL-370 (76%);100ML BOTTLE 75 ML IV (14:57)
[2025-02-18] MEDS: SODIUM CHLORIDE 0.9% 10ML SYR (RAD ONLY) 10 ML IV (14:58)
[2025-02-18 15:15] LABS: C-Reactive Protein < 0.3 mg/L (0-4); Procalcitonin < 0.030 ng/mL (0.0-2.0)
[2025-02-18 15:17] LABS: Bacteria,Urine Trace /lpf
[2025-02-18 17:13] VITALS: BP 108/72; PULSE 78; RESP 18; TEMP 36.8; O2SAT 98
== END 2025-02-18 17:13 | disposition home or self-care (01) ==
PROVIDERS: Physician Assistant; Emergency Provider Student in an Organized Health Care Education/Training Program
DX: R10.31 Right lower quadrant pain (principal); R10.11 Right upper quadrant pain; K59.00 Constipation, unspecified
CPT/HCPCS: 74177; 80053; 81001; 81025; 84145; 85025; 86140; 96361; 96374; 96375; 99285; J0131; J1885; J2405; J7030; Q9967

== ENCOUNTER 2025-04-17 17:35 | Emergency (ER) | payer OTHER, SELFPAY ==
[2025-04-17 17:39] VITALS: BP 134/60; PULSE 96; RESP 18; TEMP 36.6; O2SAT 97; BMI 29.0
--- NOTE | 2025-04-17 17:50 | XR_ITS ---
PROCEDURE INFORMATION: Exam: XR Right Shoulder Exam date and time: 04/17/2025 6:25 PM Age: 19 years old Clinical indication: Pain; Shoulder; Right TECHNIQUE: Imaging protocol: Radiologic exam of the right shoulder. Views: 2 or more views. COMPARISON: CT CERVICAL SPINE WO CON 04/17/2025 6:25 PM FINDINGS: Bones/joints: Osseous alignment is normal. No acute fracture. No significant arthritic change. Soft tissues: Normal. IMPRESSION: Negative right shoulder
--- NOTE | 2025-04-17 17:50 | CT_ITS ---
PROCEDURE INFORMATION: Exam: CT Cervical Spine Without Contrast Exam date and time: 04/17/2025 6:25 PM Age: 19 years old Clinical indication: Neck pain TECHNIQUE: Imaging protocol: Computed tomography of the cervical spine without contrast. Radiation optimization: All CT scans at this facility use at least one of these dose optimization techniques: automated exposure control; mA and/or kV adjustment per patient size (includes targeted exams where dose is matched to clinical indication); or iterative reconstruction. COMPARISON: CT HEAD/BRAIN WO CON 02/28/2023 5:55 PM FINDINGS: Bones: No acute fracture. Normal alignment. No significant disc bulge or herniation. No severe spinal canal stenosis. No significant neural foraminal narrowing. Lungs: Lung apices are normal. Soft tissues: Unremarkable. IMPRESSION: No acute cervical spine fracture.
--- NOTE | 2025-04-17 17:52 | ED_ITS ---
Discharge Plan Disposition Patient Disposition: Home, Self-Care Prescriptions Prescriptions: New ketorolac 10 mg tablet 10 mg PO Q8H PRN (Reason: pain) 5 Days Qty: 20 0RF methocarbamol 750 mg tablet 750 mg PO Q8H Qty: 30 0RF No Action trazodone 50 mg tablet See Rx Instructions PO DAILY Qty: 60 1RF Rx Instructions: 1-2 tabs qhs prn sleep lamotrigine [Lamictal] 25 mg tablet 25 mg PO DAILY 14 Days Qty: 14 0RF lamotrigine [Lamictal] 25 mg tablet 50 mg PO DAILY 14 Days Qty: 28 0RF desvenlafaxine succinate [Pristiq] 50 mg tablet extended release 24 hr 50 mg PO DAILY Qty: 30 2RF Referrals Follow up/Referrals: Provider,Referral, MD [Primary Care Provider, Medical] - See instructions Activity Restrictions/Add. Instructions Additional Instructions/Restrictions: May apply ice or heat whichever is more comfortable. Please follow-up with your primary care physician for further workup and management of your pain. Clinical Impressions Clinical Impression: Acute pain of right shoulder Instructions Patient Instructions: DI for Acute Pain -- Adult, DI for Shoulder Pain Print Language Print Language: Micronesian Discharge ED Provider: Hudson Bueno General Adult HPI <Shelly Torres (ED), TRANSMITTER ENGINEER - Last Filed: 04/17/25 20:32> General Chief complaint: PAIN Stated complaint: R Shoulder Pain and down neck and lower back Time Seen by Provider: 04/17/25 17:45 Mode of Arrival: Ambulatory Source of Information: Patient Description of Symptoms (Recalled from ER Triage Doc. by RN): PT presents to Ed for evaluation of R shoulder. Hx of dislocation 6 years ago. PT stated she woke up to shooting pain in right shoulder, Right side of neck and right side of back pain, PT stated their is a cold feeling inside of shoulder bone. PT rates pain a 9/10. Denies taking anything for pain. History of Present Illness HPI narrative: This is a 19-year-old female who presents to the ED today for right shoulder pain. She says in high school she dislocated it and ever since that she has had pain in her trapezius area that also goes up her neck. She says that it feels like nerve pain. She says that she does not take anything at home for pain and nothing will help. Denies any other history of injury. Related Data Previous Rx's ?Medication ?Instructions ?Recorded lamotrigine 25 mg tablet (Lamictal) 25 mg PO DAILY 14 days #14 tabs 02/22/25 lamotrigine 25 mg tablet (Lamictal) 50 mg (2 x 25 mg) PO DAILY 14 days 02/22/25 #28 tabs trazodone 50 mg tablet See Rx Instructions PO DAILY #60 02/22/25 tabs desvenlafaxine succinate 50 mg 50 mg PO DAILY #30 tabs 03/10/25 tablet,extended release 24 hr (Pristiq) ketorolac 10 mg tablet 10 mg PO Q8H PRN pain 5 days #20 04/17/25 tabs methocarbamol 750 mg tablet 750 mg PO Q8H #30 tabs Allergies Allergy/AdvReac Type Severity Reaction Status Date / Time No Known Allergies Allergy Verified 03/06/25 14:03 PFS <Shelly Torres (ED), TRANSMITTER ENGINEER - Last Filed: 04/17/25 20:32> [facility] Disclaimer: The information contained in this section may have been updated after the patient was seen, as this information can be updated by other users. Medical History UTI symptoms Recurrent streptococcal pharyngitis Depression Anxiety Surgical History H/O wisdom tooth extraction Family History Other Substance abuse Social History Smoking Status: Current every day smoker second hand exposure: No alcohol intake: never substance use type: denies use current occupational status: other Travel in the last 8 weeks?: None housing: house number of children: 0 Have you lived/traveled outside US in past 30 days?: No Contact w/someone who lives/traveled outside US past 30 days?: No Exposure to someone with infectious disease in past 14 days?: No Do you have a fever (greater than 100.4 F or 38 C)?: No Have you tested positive for COVID-19?: No Exposed to someone with COVID-19 in past 14 days?: No Do you have a sore throat?: No Do you have a cough?: No Do you have any weakness?: No Do you have any diarrhea?: No Are you experiencing any unusual bleeding?: No Do you have any muscle aches/pain?: No Do you have any abdominal pain?: No Are you experiencing loss of taste or smell?: No Other Medical History Have you received the Flu Vaccine for this season: No Have you received the Pneumonia Vaccine: No <Shelly Torres (ED), TRANSMITTER ENGINEER - Last Filed: 04/17/25 20:32> ROS Obtained: Yes Systems reviewed as appropriate & no additional complaints except as documented Constitutional Constitutional: Reports as per HPI Physical Exam <Shelly Torres (ED), TRANSMITTER ENGINEER - Last Filed: 04/17/25 20:32> General General appearance: alert and in distress Head Head exam: atraumatic and normocephalic Eye Eye exam: Present PERRL and EOMI ENT ENT exam: Present normal oropharynx and mucous membranes moist Neck Neck exam: Present trachea midline and tenderness Respiratory Respiratory exam: Present normal lung sounds bilaterally Cardiovascular Cardiovascular exam: Present regular rate, normal rhythm, normal heart sounds, +S1 and +S2 Extremities Exam Extremities exam: Present tenderness (Right shoulder guarding) and normal capillary refill Back Exam Back exam: Present tenderness (Tenderness over trapezius area on right side) and muscle spasm Neurological Exam Neurological exam: Present alert, oriented X3 and normal gait Skin Skin exam: Present warm, dry and intact Medical Decision Making <Shelly Torres (ED), TRANSMITTER ENGINEER - Last Filed: 04/17/25 20:32> Medical Records Screening: Per USPSTF and CDC recommendations, given the prevalence of disease in our region, it is our hospital?s policy to screen for HIV and viral Hepatitis for all patients aged 18 and over and those with ongoing risk factors. Regis Inquiry Pt receiving controlled substance: No Regis was queried for this patient: No Vital Signs: 04/17/25 17:39 04/17/25 18:51 04/17/25 19:36 Temperature 97.9 F Temperature Source Tympanic Pulse Rate 73 90 Pulse Rate [Left] 96 H Respiratory Rate 18 16 Blood Pressure 125/36 L 126/64 Blood Pressure [Left Arm] 134/60 Blood Pressure Mean [Left Arm] 84 02 Sat by Pulse Oximetry 97 100 98 Oxygen Delivery Method Room Air Room Air 04/17/25 20:03 Temperature 98.4 F Temperature Source Oral Pulse Rate 81 Pulse Rate [Left] Respiratory Rate 18 Blood Pressure 119/70 Blood Pressure [Left Arm] Blood Pressure Mean [Left Arm] 02 Sat by Pulse Oximetry Oxygen Delivery Method Room Air Lab Data Lab Results 04/17/25 17:56: Urine HCG, Qual Negative Orders (Tests/Meds): ED MEDICATIONS Discontinued Medications Generic Name Dose Route Start Last Admin Trade Name Tray PRN Reason Stop Dose Admin Ketorolac Tromethamine 30 mg 04/17/25 17:50 04/17/25 18:07 Ketorolac 30mg/Ml Vial IM 04/17/25 17:51 30 mg ONCE ONE Administration Orphenadrine Citrate 60 mg 04/17/25 17:50 04/17/25 18:06 Orphenadrine Citrate 60mg/2ml Vial IM 04/17/25 17:51 60 mg ONCE ONE Administration ORDERS Category Date Time Status CT cervical spine wo con Stat Cat Scan 04/17/25 17:50 Completed Shoulder XR right miminum 2 views [XR shoulder RT min Exams 04/17/25 17:50 Completed 2V] Stat Urine , HCG Qual. Stat Lab 04/17/25 17:56 Completed Medical Decision Narrative: patient is a 19-year-old female presenting to the emergency department for evaluation of right shoulder pain and right neck pain. She dislocated a right shoulder back in school and has had pain in her trapezius area since. Patient is hemodynamically stable and nontoxic-appearing upon arrival, afebrile. Differential diagnosis includes trapezius strain, sprain, right shoulder dislocation, fracture, cervical strain, sprain among others. Workup will be conducted with imaging. Initial inventions include analgesics. Imaging informally interpreted by me and remarkable for nothing acute. Formal imaging read remarkable for please review radiology report. Upon repeat evaluation patient's pain has improved with medications given. Patient safe for discharge home. <Hudson Bueno MD - Last Filed: 04/17/25 20:56> Vital Signs: 04/17/25 17:39 04/17/25 18:51 04/17/25 19:36 Temperature 97.9 F Temperature Source Tympanic Pulse Rate 73 90 Pulse Rate [Left] 96 H Respiratory Rate 18 16 Blood Pressure 125/36 L 126/64 Blood Pressure [Left Arm] 134/60 Blood Pressure Mean [Left Arm] 84 02 Sat by Pulse Oximetry 97 100 98 Oxygen Delivery Method Room Air Room Air 04/17/25 20:03 Temperature 98.4 F Temperature Source Oral Pulse Rate 81 Pulse Rate [Left] Respiratory Rate 18 Blood Pressure 119/70 Blood Pressure [Left Arm] Blood Pressure Mean [Left Arm] 02 Sat by Pulse Oximetry Oxygen Delivery Method Room Air Lab Data Lab Results 04/17/25 17:56: Urine HCG, Qual Negative Orders (Tests/Meds): ED MEDICATIONS Discontinued Medications Generic Name Dose Route Start Last Admin Trade Name Freq PRN Reason Stop Dose Admin Ketorolac Tromethamine 30 mg 04/17/25 17:50 04/17/25 18:07 Ketorolac 30mg/Ml Vial IM 04/17/25 17:51 30 mg ONCE ONE Administration Orphenadrine Citrate 60 mg 04/17/25 17:50 04/17/25 18:06 Orphenadrine Citrate 60mg/2ml Vial IM 04/17/25 17:51 60 mg ONCE ONE Administration ORDERS Category Date Time Status CT cervical spine wo con Stat Cat Scan 04/17/25 17:50 Completed Shoulder XR right miminum 2 views [XR shoulder RT min Exams 04/17/25 17:50 Completed 2V] Stat Urine , HCG Qual. Stat Lab 04/17/25 17:56 Completed Medical Decision Narrative: patient is a 19-year-old female presenting to the emergency department for evaluation of right shoulder pain and right neck pain. She dislocated a right shoulder back in school and has had pain in her trapezius area since. Patient is hemodynamically stable and nontoxic-appearing upon arrival, afebrile. Differential diagnosis includes trapezius strain, sprain, right shoulder dislocation, fracture, cervical strain, sprain among others. Workup will be conducted with imaging. Initial inventions include analgesics. Imaging informally interpreted by me and remarkable for nothing acute. Formal imaging read remarkable for please review radiology report. Upon repeat evaluation patient's pain has improved with medications given. Patient safe for discharge home. I was consulted by the BHUMI, and we discussed the complexity of the problems being addressed. I approved the treatment and management plan for this patient's care in the Emergency Department, thus performing a substantive portion of the medical decision making. Hudson Bueno MD Critical Care <Shelly Torres (ED), TRANSMITTER ENGINEER - Last Filed: 04/17/25 20:32> Critical Care Time Critical Care Time: No
[2025-04-17] MEDS: ORPHENADRINE CITRATE 60MG/2ML VIAL 60 MG IM (18:06)
[2025-04-17] MEDS: KETOROLAC 30MG/ML VIAL 30 MG IM (18:07)
[2025-04-17 18:17] LABS: Urine Pregnancy, HCG Qual. Negative (Negative)
[2025-04-17 18:51] VITALS: BP 125/36; PULSE 73; O2SAT 100
[2025-04-17 19:36] VITALS: BP 126/64; PULSE 90; RESP 16; O2SAT 98
[2025-04-17 20:03] VITALS: BP 119/70; PULSE 81; RESP 18; TEMP 36.9; O2SAT 98
== END 2025-04-17 20:04 | disposition home or self-care (01) ==
PROVIDERS: Nurse Practitioner; Emergency Provider Emergency Medicine
DX: M25.511 Pain in right shoulder (principal); F17.210 Nicotine dependence, cigarettes, uncomplicated
CPT/HCPCS: 72125; 73030; 81025; 96372; 99284; J1885; J2360

== ENCOUNTER 2025-05-16 15:20 | Outpatient (CLI) | payer OTHER, SELFPAY ==
[2025-05-18 11:11] LABS: Neisseria gonorrhoeae, NAA Negative (Negative)
[2025-05-21 13:37] LABS: Bacterial Vaginosis Associated 0
[2025-05-21 13:38] LABS: Candida albicans, NAA 0; Candida glabrata, NAA 0
== END 2025-05-16 23:59 | disposition home or self-care (01) ==
LOC: LAB.DROPOF 05-17 10:57
PROVIDERS: PCP Obstetrics & Gynecology; Visit Provider Obstetrics & Gynecology
DX: N89.8 Other specified noninflammatory disorders of vagina (principal)
CPT/HCPCS: 87491; 87591; 87798; 87801

== ENCOUNTER 2025-07-18 15:52 | Outpatient (CLI) | payer OTHER, SELFPAY ==
[2025-07-18 18:58] LABS: Hepatitis C Ab Qual. W/ RFX NEGATIVE (Negative)
[2025-07-19 10:43] LABS: RPR W/RFX Titers Nonreactive (Nonreactive)
[2025-07-20 08:17] LABS: Hepatitis B Surface Antigen Negative (Negative)
== END 2025-07-18 23:59 | disposition home or self-care (01) ==
LOC: LAB 15:57
PROVIDERS: Visit Provider Obstetrics & Gynecology
DX: Z11.3 Encounter for screening for infections with a predominantly sexual mode of transmission (principal); R10.2 Pelvic and perineal pain; R39.9 Unspecified symptoms and signs involving the genitourinary system
CPT/HCPCS: 36415; 86592; 86803; 87086; 87340; 87389; 87491; 87529; 87591; 87661; 87798; 87801

== ENCOUNTER 2025-09-17 10:34 | Outpatient (CLI) | payer OTHER, SELFPAY ==
[2025-09-17 14:50] LABS: RPR W/RFX Titers Nonreactive (Nonreactive)
[2025-09-20 12:12] LABS: HSV-1 DNA Negative (Negative); HSV-2 DNA Negative (Negative)
== END 2025-09-17 23:59 | disposition home or self-care (01) ==
LOC: LAB 10:34
PROVIDERS: Visit Provider Obstetrics & Gynecology
DX: N76.6 Ulceration of vulva (principal)
CPT/HCPCS: 36415; 86592; 87529

== ENCOUNTER 2025-10-17 13:47 | Outpatient (CLI) | payer SELFPAY ==
[2025-10-17 20:40] LABS: Coronavirus 19, PCR Not Detected (NotDetected); Influenza A, PCR Not Detected (NotDetected); Influenza B, PCR Not Detected (NotDetected)
== END 2025-10-17 23:59 | disposition home or self-care (01) ==
LOC: LAB.DROPOF 10-18 09:51
PROVIDERS: Visit Provider Student in an Organized Health Care Education/Training Program
DX: R06.9 Unspecified abnormalities of breathing (principal)
CPT/HCPCS: 87631